=== PATIENT | female | born 1985 | race Caucasian/White ===

== ENCOUNTER → 2019-02-18 16:41 | Outpatient (CLI) | payer SELFPAY ==
[2019-02-18 15:45] VITALS: BMI 44.6
[2019-02-18 17:46] LABS: Absolute Lymphocyte Count 2.86 X10^3/ul (0.83-4.51); Absolute Neutrophil Count 5.7 X10^3/uL (2.0-7.7); Basophil# 0.05 X10^3/uL; Basophil% 0.5 % (0-1); Eosinophil# 0.18 X10^3/uL; Eosinophils% 1.9 % (0-5); Hematocrit 39.1 % (37-47); Hemoglobin 13.1 g/dl (12.0-15.0); Lymphocyte # 2.86 X10^3/ul (4.0); Lymphocyte % 29.9 % (19-41); Mean Corp Hgb Conc 33.5 g/gl (32-36); Mean Corpuscular Hgb 29.4 pg (27.0-32.0); Mean Corpuscular Volume 87.9 fL (81-99); Mean Platelet Vol. 10.9 fl (6.2-12.0); Monocyte# 0.75 X10^3/uL; Monocyte% 7.8 % (0-10); Neutrophil % 59.7 % (47-70); Platelet Count 283 K/mm3 (150-450); RBC Distribution Width CV 13.3 % (11.6-14.6); RBC Distribution Width SD 41.4 fl (35.1-43.9); Red Blood Count 4.45 M/mm3 (4.2-5.4); White Blood Count 9.6 K/mm3 (4.4-11.0)
[2019-02-18 17:57] LABS: POSITIVE COUNT NO; POSITIVE DIFFERENTIAL NO; POSITIVE MORPHOLOGY NO
[2019-02-18 18:16] LABS: Glucose Challenge Gest 1H 50g 92 mg/dL (70-140)
[2019-02-18 19:25] LABS: HIV - WCH Non-Reactive (Nonreactive); Rubella IgG > 500.0 IU/mL
[2019-02-18 21:32] LABS: Chlamydia Trachomatis by PCR Negative (Negative); Neisserai gonorrhoeae by PCR Negative (Negative); Probe Check PASS; Sample Adequacy Control PASS; Specimen Processing Control PASS
[2019-02-20 01:45] LABS: Rapid Plasmin Reagin (RPR) NONREACTIVE (NONREACTIVE)
[2019-02-20 12:23] LABS: HEPATITIS B SURFACE AG Negative (Negative)
[2019-02-23 10:30] LABS: HPV APTIMA, High Risk Negative (Negative)
== END ==
PROVIDERS: Family Provider Family Medicine; PCP Family Medicine; Referring Provider Obstetrics & Gynecology; Visit Provider Obstetrics & Gynecology
DX: Z34.90 Encounter for supervision of normal pregnancy, unspecified, unspecified trimester (principal); Z12.4 Encounter for screening for malignant neoplasm of cervix
CPT/HCPCS: 36415; 82950; 85025; 86592; 86703; 86762; 86850; 86900; 87086; 87088; 87340; 87491; 87591; 87624; 88175; G0145

== ENCOUNTER → 2019-06-26 11:24 | Outpatient (CLI) | payer MEDICAID, SELFPAY ==
[2019-06-26 10:26] VITALS: BMI 44.6
[2019-06-26 11:48] LABS: Absolute Lymphocyte Count 2.59 X10^3/uL (0.83-4.51); Absolute Neutrophil Count 7.8 X10^3/uL (2.0-7.7); Basophil# 0.05 X10^3/uL; Basophil% 0.4 % (0-1); Eosinophil# 0.16 X10^3/uL; Eosinophils% 1.4 % (0-5); Hematocrit 34.9 % (37-47); Hemoglobin 11.4 g/dL (12.0-15.0); Lymphocyte # 2.59 X10^3/ul (4.0); Lymphocyte % 22.5 % (19-41); Mean Corp Hgb Conc 32.7 g/dL (32-36); Mean Corpuscular Hgb 30.1 pg (27.0-32.0); Mean Corpuscular Volume 92.1 fL (81-99); Mean Platelet Vol. 10.3 fl (6.2-12.0); Monocyte# 0.85 X10^3/uL; Monocyte% 7.4 % (0-10); NRBC Flagged by Analyzer 0 % (0-5); Neutrophil # 7.83 X10^3/uL (2.7-7.7); Platelet Count 349 K/mm3 (150-450); RBC Distribution Width CV 13.2 % (11.6-14.6); RBC Distribution Width SD 44.5 fl (35.1-43.9); Red Blood Count 3.79 M/mm3 (4.2-5.4); White Blood Count 11.5 K/mm3 (4.4-11.0)
[2019-06-26 12:40] LABS: Glucose Challenge Gest 1H 50g 87 mg/dL (70-140)
== END ==
LOC: PAVLAB 11:25 → LAB 11:31
PROVIDERS: Family Provider Family Medicine; PCP Family Medicine; Referring Provider Obstetrics & Gynecology; Visit Provider Obstetrics & Gynecology
DX: Z34.92 Encounter for supervision of normal pregnancy, unspecified, second trimester (principal)
CPT/HCPCS: 36415; 82950; 85025

== ENCOUNTER → 2019-07-30 12:26 | Outpatient (CLI) | payer MEDICAID, SELFPAY ==
[2019-07-24 08:59] VITALS: BMI 44.6
--- NOTE | 2019-07-30 12:28 | US_ITS ---
STUDY: SECOND AND THIRD TRIMESTER OBSTETRICAL ULTRASOUND REASON FOR EXAM: Female, 34 years old. growth. LMP: December 15, 2018. TECHNIQUE: Transabdominal TECHNICAL QUALITY: Adequate. PRIOR ULTRASOUND: None. FINDINGS: There is a single intrauterine fetus. The fetus is in a cephalic presentation. There is demonstrated cardiac activity with a heart rate of 153 bpm. There is a normal amniotic fluid volume. The largest amniotic fluid pocket measures 4.7 cm. The amniotic fluid index (HALEY) is 14.6 cm. The placenta is anterior in location and is not low lying. There are Grade 2 placental changes. The cervix measures 4.2 cm in length. The bilateral adnexal regions are normal. BIOMETRY: BPD: 8.2 cm: 32 weeks, 5 days HC: 29.6 cm: 32 weeks, 4 days AC: 28.3 cm: 32 weeks, 3 days FL: 6.3 cm: 32 weeks, 2 days CI: 79% FL/BPD: 77% FL/HC: FL/AC: 22% HC/AC: 1.04 age by current US: 32 weeks, 2 days. RONAK by current US: September 22, 2019. Estimated weight: 1970 grams, +/- 292 grams, 39 %. Age by LMP: 32 weeks, 2 days. RONAK by LMP: September 22, 2019. US/OB Limited With Biometrics IMPRESSION: Single live intrauterine gestation with a mean gestational age of 32 weeks and 2 days. Electronically Signed: Randall Snow, at 10:07 EST , Service support ,
== END ==
PROVIDERS: Family Provider Family Medicine; PCP Family Medicine; Referring Provider Obstetrics & Gynecology; Visit Provider Obstetrics & Gynecology
DX: O09.90 Supervision of high risk pregnancy, unspecified, unspecified trimester (principal); O99.211 Obesity complicating pregnancy, first trimester; Z3A.32 32 weeks gestation of pregnancy
CPT/HCPCS: 76816

== ENCOUNTER 2019-08-06 13:45 | Outpatient (CLI) | payer MEDICAID, SELFPAY ==
[2019-08-06 13:16] VITALS: BMI 44.6
[2019-08-06 14:10] VITALS: BMI 49.5
--- NOTE | 2019-08-06 14:53 | OB.TRI.PN ---
Progress Notes Date of Service: 08/06/19 Progress Note: Patient presents for triage evaluation secondary to contraction FHT: 135 Moderate variability reactive no decelerations category I tracing [place]: irritability contractions Assessment and plan: threatened PTL closed cervix Reactive NST, reassuring maternal and status patient discharged to home to follow-up as scheduled. See problem list details for additional plan information. Multi Select Codes - Urinary/Genital Urinary/Genital CPT Codes: 20024-77 non-stress test Interp
== END 2019-08-06 15:00 | disposition home or self-care (01) ==
LOC: WPOUT 13:56 → WP 13:57
PROVIDERS: Family Provider Family Medicine; PCP Family Medicine; Referring Provider Obstetrics & Gynecology; Visit Provider Obstetrics & Gynecology
DX: O60.00 Preterm labor without delivery, unspecified trimester (principal); Z3A.00 Weeks of gestation of pregnancy not specified
CPT/HCPCS: 59025; 59050; 99218; G0378

== ENCOUNTER → 2019-08-28 08:39 | Outpatient (CLI) | payer MEDICAID, SELFPAY ==
[2019-08-05 09:46] VITALS: BMI 44.6
[2019-08-19 09:07] VITALS: BMI 49.5
--- NOTE | 2019-08-28 08:40 | US_ITS ---
STUDY: SECOND AND THIRD TRIMESTER OBSTETRICAL ULTRASOUND - LIMITED REASON FOR EXAM: Female, 34 years old LMP: 12/16/2018 PRIOR ULTRASOUND: None. TECHNIQUE: Transabdominal TECHNICAL QUALITY: Adequate. FINDINGS: There is a single intrauterine fetus. The fetus is in a cephalic presentation. There is demonstrated cardiac activity with a heart rate of 1:30 bpm. There is a normal amniotic fluid volume. The largest amniotic fluid pocket measures 5.9 cm. The amniotic fluid index (HALEY) is 15.0 cm. The placenta is anterior in location and is not low lying. There are Grade 3 placental changes. The cervix measures 4.2 cm cm in length. BIOMETRY: BPD: 8.7 cm: 35 weeks, 1 days HC: 32.1 cm: 36 weeks, 1 days AC: 33.7 cm: 37 weeks, 4 days FL: 7.0 cm: 35 weeks, 4 days Age by LMP: 36 weeks, 3 days. RONAK by LMP: 09/22/2019. age by current US: 36 weeks, 4 days. RONAK by current US: 09/21/2019. Estimated weight: 3011 grams, +/- 446 grams, 57 percentile. Gender: US/OB Limited With Biometrics IMPRESSION: Living intrauterine of 36 weeks 4 days as described above. Electronically Signed: Alessio Marie MD at 12:51 EST Tel , Service support ,
== END ==
PROVIDERS: Family Provider Family Medicine; PCP Family Medicine; Referring Provider Nurse Practitioner Women's Health; Visit Provider Nurse Practitioner Women's Health
DX: O99.210 Obesity complicating pregnancy, unspecified trimester (principal); Z3A.36 36 weeks gestation of pregnancy
CPT/HCPCS: 76816; 87081

== ENCOUNTER → 2019-09-10 12:59 | Outpatient (CLI) | payer MEDICAID, SELFPAY ==
[2019-09-10 11:11] VITALS: BMI 49.5
[2019-09-10 18:40] LABS: Protein, Urine (Random) 28.8 mg/dL (<11.9); Protein:Creat Ratio 144 mg/g CRE (0-200)
== END ==
PROVIDERS: Family Provider Family Medicine; PCP Family Medicine; Referring Provider Obstetrics & Gynecology; Visit Provider Obstetrics & Gynecology
DX: O09.90 Supervision of high risk pregnancy, unspecified, unspecified trimester (principal); Z3A.00 Weeks of gestation of pregnancy not specified
CPT/HCPCS: 82570; 84156

== ENCOUNTER → 2019-09-24 14:23 | Outpatient (CLI) | payer MEDICAID, SELFPAY ==
[2019-09-18 10:29] VITALS: BMI 49.5
--- NOTE | 2019-09-24 14:24 | US_ITS ---
STUDY: SECOND AND THIRD TRIMESTER OBSTETRICAL ULTRASOUND - LIMITED REASON FOR EXAM: Female, 34 years old growth. LMP: December 15, 2018 PRIOR ULTRASOUND: August 28, 2019 and July 30, 2019. TECHNIQUE: Transabdominal TECHNICAL QUALITY: Adequate. FINDINGS: There is a single intrauterine fetus. The fetus is in a cephalic presentation. There is demonstrated cardiac activity with a heart rate of 144 bpm. There is decreased amniotic fluid volume consistent with oligohydramnios. The largest amniotic fluid pocket measures 3.33 cm. The amniotic fluid index (HALEY) is 7.98 cm. The placenta is anterior in location and is not low lying. There are Grade 3 placental changes. The cervix measures 4.04 cm cm in length. BIOMETRY: BPD: 9.23 cm: 37 weeks, 4 days HC: 33.03 cm: 37 weeks, 5 days AC: 36.44 cm: 40 weeks, 3 days FL: 7.28 cm: 37 weeks, 2 days Age by LMP: 40 weeks, 2 days. RONAK by LMP: September 22, 2019. age by prior US: 40 weeks, 2 days. RONAK by prior US: September 22, 2019. age by current US: 38 weeks, 2 days. RONAK by current US: October 06, 2019. Estimated weight: 3664 grams, +/- 535 grams. US/OB Limited With Biometrics IMPRESSION: 1. Live single intrauterine at 38 weeks, 2 days. RONAK is October 06, 2019. This is 2 weeks behind expected gestational age by initial ultrasound. 2. EFW of 3664 g. 3. Oligohydramnios. The HALEY is 7.98 cm. 4. Anterior grade 3 placenta. 5. Vertex presentation. Electronically Signed: Rufus Palma DO at 19:15 EST Tel [phone], Service support ,
== END ==
PROVIDERS: Family Provider Family Medicine; PCP Family Medicine; Referring Provider Nurse Practitioner Women's Health; Visit Provider Nurse Practitioner Women's Health
DX: O99.211 Obesity complicating pregnancy, first trimester (principal); Z3A.00 Weeks of gestation of pregnancy not specified
CPT/HCPCS: 76816

== ENCOUNTER → 2019-09-28 14:23 | Outpatient (CLI) | payer MEDICAID, SELFPAY ==
[2019-09-24 15:43] VITALS: BMI 49.5
--- NOTE | 2019-09-28 14:33 | US_ITS ---
STUDY: OBSTETRICAL ULTRASOUND - BIOPHYSICAL PROFILE REASON FOR EXAM: Female, 34 years old HALEY CHECK AND BIOPHYSICAL PROFILE LMP: December 16, 2018 PRIOR ULTRASOUND: Comparison is made with prior sonogram dated March 24, 2020. TECHNIQUE: Transabdominal TECHNICAL QUALITY: Adequate. FINDINGS: There is a single intrauterine fetus. The fetus is in a cephalic presentation. There is demonstrated cardiac activity with a heart rate of 125 bpm. There is decreased amniotic fluid consistent with oligohydramnios. The largest amniotic fluid pocket measures 2.73 cm. The amniotic fluid index (HALEY) is 4.83 cm. The placenta is anterior in location and is not low lying. There are Grade 3 placental changes. Age by LMP: 40 weeks, 6 days. RONAK by LMP: September 22, 2019. BIOPHYSICAL PROFILE: Breathing Movements (FBM): 0 Gross Body Movements (GBM): 0 Tone (FT): 0 Amniotic Fluid Volume (AFV): 0 TOTAL SCORE: 0 / 8 US/Biophysical Profile IMPRESSION: biophysical profile of 0/8. Referring physician was notified. The patient was taken to the labor and delivery room. Electronically Signed: Randall Snow, at 15:43 EST , Service support ,
== END ==
PROVIDERS: Family Provider Family Medicine; PCP Family Medicine; Referring Provider Nurse Practitioner Women's Health; Visit Provider Nurse Practitioner Women's Health
DX: O09.90 Supervision of high risk pregnancy, unspecified, unspecified trimester (principal); O99.210 Obesity complicating pregnancy, unspecified trimester; Z3A.40 40 weeks gestation of pregnancy
CPT/HCPCS: 76818

== ENCOUNTER 2019-09-28 15:25 | Inpatient (IN) | payer MEDICAID, SELFPAY ==
[2019-09-24 15:43] VITALS: BMI 49.5
[2019-09-28] VITALS (15 sets, daily range): BP systolic 103–131; BP diastolic 55–95; PULSE 88–112; RESP 16–18; TEMP 35.9–36.8; O2SAT 96–100; BMI 51.5
[2019-09-28] MEDS: Lactated Ringers 1,000 ML 999 ML IV (15:35)
[2019-09-28] MEDS: Sodium Citrate/Citric Acid 30 ML UDC PO (15:44)
[2019-09-28 15:48] LABS: Absolute Neutrophil Count 7.2 X10^3/uL (2.0-7.7); Basophil# 0.04 X10^3/uL; Basophil% 0.3 % (0-1); Eosinophil# 0.18 X10^3/uL; Eosinophils% 1.5 % (0-5); Hematocrit 37.2 % (37-47); Hemoglobin 12.3 g/dL (12.0-15.0); Lymphocyte % 28.3 % (19-41); Mean Corp Hgb Conc 33.1 g/dL (32-36); Mean Corpuscular Hgb 29.9 pg (27.0-32.0); Mean Corpuscular Volume 90.3 fL (81-99); Monocyte# 0.88 X10^3/uL; Monocyte% 7.5 % (0-10); NRBC Flagged by Analyzer 0 % (0-5); Neutrophil # 7.22 X10^3/uL (2.7-7.7); Platelet Count 417 K/mm3 (150-450); RBC Distribution Width CV 14.6 % (11.6-14.6); RBC Distribution Width SD 48.1 fl (35.1-43.9); Red Blood Count 4.12 M/mm3 (4.2-5.4); White Blood Count 11.7 K/mm3 (4.4-11.0)
--- NOTE | 2019-09-28 15:48 | PCM.HP.OB ---
- Problem List (1) Abnormal ultrasound Status: Acute (2) Oligohydramnios Status: Acute (3) Tetanus, diphtheria, and acellular pertussis (Tdap) vaccination declined Status: Acute Comment: declined on 06/26/19 (4) Influenza vaccination declined Status: Acute Comment: declined on 06/26/19 (5) Obesity affecting Status: Acute Qualifiers: Comment: 1 tm glucola nl, healthy weight gain discussed, weekly nsts after 32 weeks and growth us q 4 weeks (6) Status: Acute Qualifiers: Comment: genetic, ntd, and carrier screening declined, US limited FU heart views visualized (7) Supervision of high risk , antepartum Status: Acute Comment: PRR RONAK 10/02/19 girl name surprise Girma (8) Tobacco use complicating Status: Acute Qualifiers: Comment: encouraged cessation History Date of Admission: 09/28/19 Final RONAK: 09/22/19 Gestational age: 40 Weeks and 6 Days History of this : This is a 34 year-old, at 40w6d weeks gestational age presents for follow-up testing. Patient was being followed with weekly testing due to morbid obesity. Patient cervical exam was unfavorable on Saturday and she had a reactive NST normal growth and fluid level of 7.8 cm on Saturday and therefore a repeat HALEY and BPP was ordered today. HALEY was 4 cm and BPP was 0 out of 8 today on exam and therefore the decision was made for urgent primary section for nonreassuring testing. heart rate showed minimal to moderate variability nonreactive upon initial evaluation. No decelerations present. Patient noted normal movement over the weekend and some decreased movement this morning. Allergies No Known Allergies Allergy (Verified 09/28/19 15:35) Home Medications: Home Medications vitamin#30 30 mg iron-10 mg iron-folic acid 1 mg-omg3 capsule 1 cap PO DAILY cap 02/18/19 Smoking Status: Light Smoker (<10/day) Alcohol: None Number of Fetus(es): 1 NST - FHR Rate Baby A Baseline: 140 Variability:: Minimal, Moderate Accelerations:: None Decelerations:: None NST Reactive:: Non-Reactive FHR Category:: Category II Uterine Activity:: Irregular History Past Pregnancies: Past Pregnancies Delivery Date Name GA/ Weeks Outcome Route Wt Sex Labor Length Anesthesia Delivery Location Provider FOB Labs: Mom's Problem List Problem Status Onset Code Abnormal ultrasound Acute O28.3 Oligohydramnios Acute O41.00X0 Mom's Labs & Results 09/28/19 09/28/19 15:35 15:35 WBC 11.7 H RBC 4.12 L Hgb 12.3 Hct 37.2 MCV 90.3 MCH 29.9 MCHC 33.1 RDW Std Deviation 48.1 H RDW Coeff of Onofre 14.6 Plt Count 417 MPV 10.0 Immature Gran % (Auto) 0.400 Neut % (Auto) 62.0 Lymph % (Auto) 28.3 [place] % (Auto) 7.5 Eos % (Auto) 1.5 Baso % (Auto) 0.3 Absolute Neuts (auto) 7.2 Absolute Lymphs (auto) 3.30 Nucleated RBC % 0 Blood Type A POSITIVE Antibody Screen NEGATIVE Social History Smoking Status Light Smoker (<10/day) Expected Infant Delivery Method: DALILA Section Review of Systems Constitutional: Denies: Fever, Malaise Eyes: Denies: Blurred vision, Vision Change HEENT: Denies: Head Aches, Visual Changes Cardiovascular: Denies: Chest Pain, Palpitations Respiratory: Denies: Cough, Shortness of Breath, Wheezing Gastrointestinal: Denies: Abdominal Pain, Diarrhea, Nausea, Vomiting Genitourinary: Denies: Dysuria, Hematuria Musculoskeletal: Denies: Joint Pain, Muscle pain Skin: Denies: Lesions, Rash Neurological: Denies: Blurred vision, Focal weakness, Headaches Psychiatric: Denies: Anxiety, Depression Endocrine: Denies: Heat/ Cold Intolerance Hematologic/ Lymphatic: Denies: Easy Bruising, Easy Bleeding Physical Exam General: Alert, Cooperative, No apparent distress HEENT: Atraumatic, Normocephalic. Negative for: Thyromegaly, Lymphadenopathy Cardiovascular: Regular rate Lungs: Normal air movement Abdomen: Soft, Non Tender, Gravid Neurological: Deep Tendon Reflexes 2+/4 and Symmetrical, Neuro grossly intact. Negative for: Clonus HUMAN RESOURCE MANAGER: Normal external genitalia. Negative for: Vulvar lesions Estimated gestational size: Appropriate for gestational size Presentation: Cephalic Cervix Dilation (cm): 0 Station: -3 Effacement (%): 0 Assessment/Plan All Active Problems (Last Reviewed 09/24/19 @ 15:43 by Loni Mcfarlane) Abnormal ultrasound (Acute) Oligohydramnios (Acute) Tetanus, diphtheria, and acellular pertussis (Tdap) vaccination declined (Acute) Influenza vaccination declined (Acute) Obesity affecting (Acute) (Acute) Supervision of high risk , antepartum (Acute) Tobacco use complicating (Acute) This is a 34 year-old, , at 40w6d weeks gestational age with oligohydramnios and 0 out of 8 BPP and remote from delivery. Decision for emergent primary .patient counseled and agreeable.
--- NOTE | 2019-09-28 16:08 | PLAC_PTH ---
PATIENT: EDGAR ESTRADA LOC: [facility] U#:[id number] AGE/SX: 34/F ROOM: WP008 RE09/28/[address]: Dr. Katerina Gil MD : 1985 BED: 1 DIS: 10/01/2019 SPEC #: [id number] RECD: 09/28/19 20:51 STATUS: OSKAR AKASH #: [id number] ERIK: 09/28/19 16:[address]: Katerina Gil DEPT: SURGICAL PATHOLOGY RECD BY: Abilio Lyn ENTERED: 09/29/19 13:08 SP TYPE: PLACENTA OTHR DR: Dr. Zack Cosme, DO Tissues: Placenta, NOS Procedures: Surgery Specimen Level V HEADER OPERATION: Primary section PRE-OP DIAGNOSIS: Labor & delivery TISSUE SUBMITTED: Placenta MICROSCOPIC DIAGNOSIS Placenta: Placental disc - third trimester placenta (623 gm). - Focal increased calcification. Membranes - no pathologic diagnosis. Umbilical cord - three blood vessels and no pathologic diagnosis. SJ:ace 10/01/19 MICROSCOPIC DESCRIPTION Slides are reviewed. GROSS DESCRIPTION SPECIMEN: PLACENTA / CLINICAL INFORMATION: A. Weight: 3.525 kg B. Gestational Age: 40 weeks C. Sex: Female PLACENTAL WEIGHT (POST FIXATION): 623 gm PLACENTAL DIMENSIONS: 18.5 x 16 x 4 cm PLACENTAL SHAPE: Usual ovoid PLACENTAL WEIGHT FOR GESTATIONAL AGE: Over 99th percentile MEMBRANES - Present A. Insertion: Marginal B. Site of rupture from edge: At edge of placental disc C. Color of membrane: Edward-watson D. Abnormalities: None UMBILICAL CORD - Present A. Color: Edward-watson B. Insertion: Eccentric C. Length: 21 cm D. Diameter: 1.4 cm E. Number of vessels: Three F. Abnormalities: None PLACENTAL DISC - Present A. Color of surface: Edward-watson B. surface abnormalities: None C. Maternal cotyledons: Intact with minimal tears D. Attached retro placental clot: No clot E. Cut surface: Dark red and spongy F. Lesions: None G. Separate clot: 2 x 7 x 1 cm SECTIONS SUBMITTED: 1. Umbilical cord ( end inked) 2. Membrane roll 3. Placental disc, and maternal surfaces 4. Placental disc, and maternal surfaces 5. Placental disc, and maternal surfaces AM:ace 09/30/19 TC:5 CPT: 39407
[2019-09-28] MEDS: Ketorolac 30 MG/ML Syringe IV ×2 (16:28→22:22)
--- NOTE | 2019-09-28 16:50 | OP.PCM_ITS ---
Problem List (1) Abnormal ultrasound Status: Acute (2) Oligohydramnios Status: Acute (3) Tetanus, diphtheria, and acellular pertussis (Tdap) vaccination declined Status: Acute Comment: declined on 06/26/19 (4) Influenza vaccination declined Status: Acute Comment: declined on 06/26/19 (5) Obesity affecting Status: Acute Qualifiers: Comment: 1 tm glucola nl, healthy weight gain discussed, weekly nsts after 32 weeks and growth us q 4 weeks (6) Status: Acute Qualifiers: Comment: genetic, ntd, and carrier screening declined, US limited FU heart views visualized (7) Supervision of high risk , antepartum Status: Acute Comment: PRR RONAK 10/02/19 girl name surprise Girma (8) Tobacco use complicating Status: Acute Qualifiers: Comment: encouraged cessation Delivery Classification: DALILA Final RONAK: 09/22/19 Gestational age: 40 Weeks and 6 Days Type of Anesthesia:: Spinal Special Medications: none Implants Used: none Date of Procedure: 09/28/19 Pre-Operative Diagnosis: 0/8 BPP abnormal testing oligohydramnios Post-Operative Diagnosis: same Indications for : Distress Description of Procedure: The patient is a 34-year-old G1, P0 at 40 weeks 6 days who presents for emergent secondary to 0 out of 8 BPP and oligohydramnios. Patient had been getting testing due to morbid obesity and had a normal growth HALEY and reactive NST on Saturday and had a repeat BPP and HALEY today and testing was found to be abnormal and patient was remote from delivery and therefore the decision for an immediate primary was made. CBC result was back in normal immediately prior to and therefore spinal anesthesia was placed without difficulty. Ashby catheter was placed. The patient was placed in the dorsal supine position with leftward tilt. Patient was prepped and draped in the normal sterile fashion. Pfannenstiel skin incision was made with the scalpel and carried through to the underlying layer of fascia with the scalpel. Fascia was nicked in the midline and the incision extended laterally. The rectus bellies were dissected off superiorly and inferiorly with out complication both sharply and bluntly. The peritoneum was entered digitally. The incision was stretched and a low transverse uterine incision was made with the scalpel. The 's head was delivered atraumatically followed by the anterior and posterior shoulders without complication the rest of the delivered. The cord was clamped and cut and the was handed off to awaiting nurse. The placenta was delivered spontaneously immediately following and was noted to be intact and have a three-vessel cord. The uterus was exteriorized cleared of all clots and debris, and the incision was closed in a double layer closure using #1 Monocryl. The ovaries and fallopian tubes were noted to be within normal limits. The uterus was returned to the maternal abdomen and gutters were cleared of all clots and debris. The peritoneum was closed with 3-0 Monocryl in a running fashion. Gloves were changed prior to fascial closure. Fascia was closed with 0 PDS in a running fashion. Subcutaneous tissue was copiously irrigated and the skin was closed with 3-0 Monocryl in a subcuticular fashion. Mepilex dressing was applied without complication. Patient was taken to recovery in stable condition. It was discussed with the patient that based on the clinical information obtained during this encounter, combined with her history, at this time I would recommend vaginal or cesareans for future deliveries if further pregnancies are desired. Amniotic Membrane Rupture Type: Artificial Amniotic Fluid Description: Clear Placenta Disposition: [facility] Cord Entanglement: None Esitmated Blood Loss (ml): 500 Infant Gender: Female (1 minute): 9 (5 minute): 9 Delayed cord clamping: Yes Antibiotic Given: Ancef 3 grams IV x1 Pt instructed on risks of surgery: Bleeding, Anesthesia Risks, Infection, Injury to surrounding structure(s) including bowel and bladder Complications: None - Admit VTE Documentation VTE Present on Admission: No Multi Select Codes - Urinary/Genital Urinary/Genital CPT Codes: 57495 Delivery [facility]
[2019-09-28] MEDS: Oxytocin 30 units/NS 500 ml 30 UNITS/500 ML IV.SOLN 167 UNITS IV (17:10)
--- NOTE | 2019-09-28 20:44 | NURSING ---
Indwelling urinary catheter present. WNL
[2019-09-28 20:48] LABS: Pathology Specimen OB SEE PATHOLOGY REPORT
[2019-09-28] MEDS: Lactated Ringers 1,000 ML 100 ML IV (21:37)
[2019-09-29] VITALS (14 sets, daily range): BP systolic 87–126; BP diastolic 45–64; PULSE 90–104; RESP 14–18; TEMP 36.4–36.9; O2SAT 96–99
--- NOTE | 2019-09-29 01:59 | NURSING ---
Patient denies lightheadedness or dizziness. Will continue to monitor.
[2019-09-29] MEDS: Ketorolac 30 MG/ML Syringe IV ×3 (04:27→18:29)
[2019-09-29] MEDS: 0.9% Saline Lock 10 ML Syringe IV ×4 (04:28→18:29)
[2019-09-29] MEDS: Enoxaparin 40 MG/0.4 ML Syringe SC ×2 (05:10→18:36)
[2019-09-29 05:28] LABS: Hematocrit 31.3 % (37-47); Hemoglobin 10.1 g/dL (12.0-15.0); Mean Corp Hgb Conc 32.3 g/dL (32-36); Mean Corpuscular Volume 89.9 fL (81-99); Mean Platelet Vol. 10.1 fl (6.2-12.0); Platelet Count 326 K/mm3 (150-450); RBC Distribution Width CV 14.8 % (11.6-14.6); RBC Distribution Width SD 48.7 fl (35.1-43.9); Red Blood Count 3.48 M/mm3 (4.2-5.4); White Blood Count 12.7 K/mm3 (4.4-11.0)
--- NOTE | 2019-09-29 09:10 | PCM.PN.OB ---
Patient Problems: Active and Suspected Problems (Last Reviewed 09/24/19 @ 15:43 by Loni Mcfarlane) Abnormal ultrasound (Acute) Oligohydramnios (Acute) Subjective: doing well no complaints pain controlled no CP SOB N V ambulating well tolerating po lochia moderate, going well - Physical Exam Vitals/I&O's: Vital Signs Temp Pulse Resp BP Pulse Ox 98.4 F 104 H 16 94/45 L 98 09/29/19 03:40 09/29/19 04:13 09/29/19 06:13 09/29/19 03:40 09/29/19 06:13 Oxygen Delivery Method Room Air Weight: 229 lb 15.074 oz Body Mass Index (BMI) 51.5 Intake and Output for Last 24 Hours 09/27/19 09/28/19 09/29/19 23:59 23:59 23:59 Intake Total 2314.8 / 2314.8 1073.08 / 1073.08 Output Total 525 / 525 2100 / 2100 Balance 1789.8 / 1789.8 -1026.92 / -1026.92 General: Alert, Oriented x3 Laboratory Results 09/28/19 15:35: WBC 11.7 H, RBC 4.12 L, Hgb 12.3, Hct 37.2, MCV 90.3, MCH 29.9, MCHC 33.1, RDW Std Deviation 48.1 H, RDW Coeff of Onofre 14.6, Plt Count 417, MPV 10.0, Immature Gran % (Auto) 0.400, Neut % (Auto) 62.0, Lymph % (Auto) 28.3, [place] % (Auto) 7.5, Eos % (Auto) 1.5, Baso % (Auto) 0.3, Absolute Neuts (auto) 7.2, Absolute Lymphs (auto) 3.30, Nucleated RBC % 0 09/28/19 15:35: Blood Type A POSITIVE, Antibody Screen NEGATIVE 09/29/19 05:15: WBC 12.7 H, RBC 3.48 L, Hgb 10.1 L, Hct 31.3 L, MCV 89.9, MCH 29.0, MCHC 32.3, RDW Std Deviation 48.7 H, RDW Coeff of Onofre 14.8 H, Plt Count 326, MPV 10.1 Current Medications Acetaminophen (Tylenol) 1,000 mg PO Q8H PRN PRN Reason: Pain Score 1-3/10 Bisacodyl (Dulcolax) 10 mg RECTAL UD PRN PRN Reason: If no BM Enoxaparin Sodium (Lovenox) 40 mg SC BID [facility] Last Admin: 09/29/19 05:10 Dose: 40 mg Documented by: Hydrocortisone (Hytone) 1 applic TOPICAL TID PRN PRN; Protocol PRN Reason: Discomfort Lactated Ringer's () 1,000 mls @ 100 mls/hr IV .Q10H [facility] Last Infusion: 09/29/19 07:54 Dose: Infused Documented by: Naloxone HCl 4 mg/ Dextrose 504 mls @ 0 mls/hr IV .Q0M PRN; Protocol PRN Reason: Respiratory depression Naloxone HCl 4 mg/ Dextrose 504 mls @ 0 mls/hr IV .Q0M PRN; Protocol PRN Reason: To maintain Resp. rate >10 Ketorolac Tromethamine (Toradol) 30 mg IV Q6H [facility] Stop: 09/30/19 12:31 Last Admin: 09/29/19 04:27 Dose: 30 mg Documented by: Methylergonovine Maleate (Methergine) 0.2 mg IM X1 PRN PRN Reason: Uterine Atony Naloxone HCl (Narcan) 0.02 mg IV Q1M PRN PRN Reason: RR <10 and pt unresponsive Naproxen (Naprosyn) 250 - 500 mg PO Q8H PRN PRN PRN Reason: Pain Score 1-3/10 Ondansetron HCl (Zofran) 4 mg IV Q4H PRN PRN PRN Reason: Nausea Oxycodone HCl (Oxyir) 5 - 10 mg PO Q4H PRN PRN PRN Reason: Pain Score 4-10/10 Prochlorperazine Edisylate (Compazine Iv) 10 mg IV Q6H PRN PRN PRN Reason: NAUSEA Senna/Docusate Sodium (Senokot-S, Koki-Colace) 0 tablet PO DAILY PRN PRN Reason: Constipation Simethicone (Mylicon) 80 mg PO PCHS PRN PRN Reason: Indigestion/stomach pain Sodium Chloride () 5 - 15 ml IV UD PRN PRN Reason: SALINE FLUSH Last Admin: 09/29/19 07:54 Dose: 10 ml Documented by: Medical Necessity - Tobacco Use Smoking Status: Current every day smoker Assessment/Plan All Active Problems (Last Reviewed 09/24/19 @ 15:43 by Loni Mcfarlane) Abnormal ultrasound (Acute) Oligohydramnios (Acute) Tetanus, diphtheria, and acellular pertussis (Tdap) vaccination declined (Acute) Influenza vaccination declined (Acute) Obesity affecting (Acute) (Acute) Supervision of high risk , antepartum (Acute) Tobacco use complicating (Acute) s/p LTCS PPD # 1 1. routine post care 2. breast feeding- support given 3. rh positive 4. rubella immune
[2019-09-29] MEDS: Senna/Docusate Sodium 1 Tablet PO (12:25)
--- NOTE | 2019-09-29 13:45 | CASEMGMT ---
Social Work Labor and Delivery Consult received for maternal history of marijuana use in . Medical records reviewed. Presented to patient/mother of baby (MOB) room. Also in room was father of baby (FOB) and a female visitor who was holding the baby. Introduced to self. Offered to come back later today or tomorrow morning due to having visitors (due to nature of conversation needing to be private). MOB reports will be having more visitors later today so tomorrow morning would be preferred. MOB also reports may be in the hospital another 2 days yet. Plan: See MOB on 09.30.2018 as time allows for assessment. -PEBBLES Suresh, CUSTOMER EXPERIENCE ASSOCIATE
--- NOTE | 2019-09-29 15:28 | NURSING ---
Mother has been doing well holding infant during day, bonding with . Upon entering room to give her Toradol and get pt's vitals, was crying in FOB's arms while mother was eating lunch. Pt reports she is getting ready to feed infant as she thinks it's time. VS obtained, and then pt. decided she needed to use restroom. VS obtained on , RR noted to be 84, rooting. Mother back to bed for feeding. Explained to Carina that the baby is the boss now, of when she gets to eat, sleep - that baby calls the shots. Carina stated that's what people have been telling me. Carina assisted to get latched - very aware of positioning, doing well with that, attempting to get on on her own. Does well expressing colostrum to get infant on. difficult to latch for feed (this at 1250), explained to mother that infant's get to a point when they are so hungry that they become difficult to latch. Carina verbalized understanding, but I feel may need some reinforcement on this. Asked if they had changed any diapers this am, and Carina states I didn't even think about that. This reported to SW, as well as pt. doing well at attempting to parada with infant and with with some assist. Mother also doing well getting up and moving around in room - pt. reports she is eager to be able to go home.
--- NOTE | 2019-09-29 21:21 | NURSING ---
this RN providing continuous emotional support to mother. mother intermittently tearful regarding feelings of being overwhelmed with infant crying and feeding. pt reassured with education and support. she is aware to call RN for any needs and continued breast feeding help. finance consultant updated as well on care provided.
[2019-09-29] MEDS: oxyCODONE 5 MG Tablet PO (21:47)
[2019-09-29] MEDS: Acetaminophen 500 MG Tablet 1000 MG PO (23:21)
--- NOTE | 2019-09-29 23:45 | NURSING ---
nursery RN christina contacted this RN at 2314 stating that pt was writhing in pain while breast feeding. christina suggesting to give pt medication for breakthrough pain. this RN spoke with pt on pain control options and she wanted to take tylenol 1000 mg. this was administered at 2321. patient rating pain 10/10 while sitting in bed. pt aware pain rating that high is compared to surgery without anesthesia. kpad provided to help with incisional pain. pt aware not to be holding infant while applying heating pad. this RN offered to call dr way with anesthesia to perform pain assessment and pt declined. this RN also offered to bring toradol in earlier than scheduled time at 0030. pt stopped being tearful during this discussion and states she will wait until 0030 for dose. she is to call nurse if needs anything before that time.
--- NOTE | 2019-09-30 00:10 | NURSING ---
this RN at bedside to assess pain at this time prior to toradol dose. pt stating pain is now 0/10 and was resting with eyes closed when RN first walked in. will administer toradol at this time and continue to monitor. charge coordinator kelsi aware of pt pain level reported.
[2019-09-30] MEDS: Ketorolac 30 MG/ML Syringe IV ×3 (00:12→12:27)
[2019-09-30] MEDS: 0.9% Saline Lock 10 ML Syringe IV ×3 (00:12→12:27)
[2019-09-30 02:32] VITALS: BP 99/59; PULSE 86; RESP 14; TEMP 36.9
[2019-09-30] MEDS: Enoxaparin 40 MG/0.4 ML Syringe SC ×2 (06:35→18:15)
--- NOTE | 2019-09-30 07:48 | PN.OBGYN_ITS ---
Patient Problems: Active and Suspected Problems (Last Reviewed 09/24/19 @ 15:43 by Loni Mcfarlane) Abnormal ultrasound (Acute) Oligohydramnios (Acute) Subjective: doing well no complaints pain controlled no CP SOB N V ambulating well tolerating po lochia moderate, going well - Physical Exam Vitals/I&O's: Vital Signs Temp Pulse Resp BP Pulse Ox 98.5 F 86 14 99/59 L 97 09/30/19 02:32 09/30/19 02:32 09/30/19 02:32 09/30/19 02:32 09/29/19 16:30 Oxygen Delivery Method Room Air Weight: 229 lb 15.074 oz Body Mass Index (BMI) 51.5 Intake and Output for Last 24 Hours 09/28/19 09/29/19 09/30/19 23:59 23:59 23:59 Intake Total 2314.8 / 2314.8 1073.08 / 1073.08 Output Total 525 / 525 2100 / 2100 Balance 1789.8 / 1789.8 -1026.92 / -1026.92 General: Alert, Oriented x3 Current Medications Acetaminophen (Tylenol) 1,000 mg PO Q8H PRN PRN Reason: Pain Score 1-3/10 Last Admin: 09/29/19 23:21 Dose: 1,000 mg Documented by: Bisacodyl (Dulcolax) 10 mg RECTAL UD PRN PRN Reason: If no BM Enoxaparin Sodium (Lovenox) 40 mg SC BID [facility] Last Admin: 09/30/19 06:35 Dose: 40 mg Documented by: Hydrocortisone (Hytone) 1 applic TOPICAL TID PRN PRN; Protocol PRN Reason: Discomfort Naloxone HCl 4 mg/ Dextrose 504 mls @ 0 mls/hr IV .Q0M PRN; Protocol PRN Reason: Respiratory depression Naloxone HCl 4 mg/ Dextrose 504 mls @ 0 mls/hr IV .Q0M PRN; Protocol PRN Reason: To maintain Resp. rate >10 Ketorolac Tromethamine (Toradol) 30 mg IV Q6H [facility] Stop: 09/30/19 12:31 Last Admin: 09/30/19 06:31 Dose: 30 mg Documented by: Methylergonovine Maleate (Methergine) 0.2 mg IM X1 PRN PRN Reason: Uterine Atony Naloxone HCl (Narcan) 0.02 mg IV Q1M PRN PRN Reason: RR <10 and pt unresponsive Naproxen (Naprosyn) 250 - 500 mg PO Q8H PRN PRN PRN Reason: Pain Score 1-3/10 Ondansetron HCl (Zofran) 4 mg IV Q4H PRN PRN PRN Reason: Nausea Oxycodone HCl (Oxyir) 5 - 10 mg PO Q4H PRN PRN PRN Reason: Pain Score 4-10/10 Last Admin: 09/29/19 21:47 Dose: 10 mg Documented by: Prochlorperazine Edisylate (Compazine Iv) 10 mg IV Q6H PRN PRN PRN Reason: NAUSEA Senna/Docusate Sodium (Senokot-S, Koki-Colace) 0 tablet PO DAILY PRN PRN Reason: Constipation Last Admin: 09/29/19 12:25 Dose: 2 tablet Documented by: Simethicone (Mylicon) 80 mg PO PCHS PRN PRN Reason: Indigestion/stomach pain Sodium Chloride () 5 - 15 ml IV UD PRN PRN Reason: SALINE FLUSH Last Admin: 09/30/19 06:31 Dose: 10 ml Documented by: Medical Necessity - Tobacco Use Smoking Status: Current every day smoker Assessment/Plan All Active Problems (Last Reviewed 09/24/19 @ 15:43 by Loni Mcfarlane) Abnormal ultrasound (Acute) Oligohydramnios (Acute) Tetanus, diphtheria, and acellular pertussis (Tdap) vaccination declined (Acute) Influenza vaccination declined (Acute) Obesity affecting (Acute) (Acute) Supervision of high risk , antepartum (Acute) Tobacco use complicating (Acute) s/p LTCS PPD # 2 1. routine post care 2. breast feeding- support given 3. rh positive 4. rubella immune
[2019-09-30 08:15] VITALS: BP 133/62; PULSE 88; RESP 20; TEMP 36.7
--- NOTE | 2019-09-30 12:40 | NURSING ---
IV removed from pt right hand at this time as IV medication regimen was completed. Pt tolerated well. Rated pain 0/10 with IV removal.
[2019-09-30 14:00] VITALS: BP 111/53; PULSE 80; RESP 18; TEMP 36.8
[2019-09-30] MEDS: Naproxen 250 MG Tablet PO (18:28)
[2019-09-30 20:00] VITALS: BP 103/69; PULSE 98; RESP 16; TEMP 36.6
[2019-09-30] MEDS: Acetaminophen 500 MG Tablet 1000 MG PO (23:07)
[2019-10-01 02:00] VITALS: BP 106/66; PULSE 93; RESP 16; TEMP 36.7
[2019-10-01] MEDS: Naproxen 250 MG Tablet PO ×2 (02:29→11:07)
[2019-10-01] MEDS: Enoxaparin 40 MG/0.4 ML Syringe SC (05:32)
--- NOTE | 2019-10-01 07:42 | PCM.PN.OB ---
Subjective: Doing well, no complaints.Pain controlled. Denies CP, SOB, N,V. Ambulating well, tolerating po. Lochia moderate, going well. - Physical Exam Vitals/I&O's: Vital Signs Temp Pulse Resp BP Pulse Ox 98.1 F 93 16 106/66 97 10/01/19 02:00 10/01/19 02:00 10/01/19 02:00 10/01/19 02:00 09/29/19 16:30 Oxygen Delivery Method Room Air Weight: 229 lb 15.074 oz Body Mass Index (BMI) 51.5 Intake and Output for Last 24 Hours 09/29/19 09/30/19 10/01/19 23:59 23:59 23:59 Intake Total 1073.08 / 1073.08 Output Total 2100 / 2100 Balance -1026.92 / -1026.92 General: Alert, Oriented x3 Abdomen: Soft, Non-Distended, - - FF below U. Dressing dry and intact. Binder on. tolerated exam well Current Medications Acetaminophen (Tylenol) 1,000 mg PO Q8H PRN PRN Reason: Pain Score 1-3/10 Last Admin: 09/30/19 23:07 Dose: 1,000 mg Documented by: Bisacodyl (Dulcolax) 10 mg RECTAL UD PRN PRN Reason: If no BM Enoxaparin Sodium (Lovenox) 40 mg SC BID@0600,1800 [facility] Last Admin: 10/01/19 05:32 Dose: 40 mg Documented by: Hydrocortisone (Hytone) 1 applic TOPICAL TID PRN PRN; Protocol PRN Reason: Discomfort Naloxone HCl 4 mg/ Dextrose 504 mls @ 0 mls/hr IV .Q0M PRN; Protocol PRN Reason: Respiratory depression Naloxone HCl 4 mg/ Dextrose 504 mls @ 0 mls/hr IV .Q0M PRN; Protocol PRN Reason: To maintain Resp. rate >10 Methylergonovine Maleate (Methergine) 0.2 mg IM X1 PRN PRN Reason: Uterine Atony Naloxone HCl (Narcan) 0.02 mg IV Q1M PRN PRN Reason: RR <10 and pt unresponsive Naproxen (Naprosyn) 250 - 500 mg PO Q8H PRN PRN PRN Reason: Pain Score 1-3/10 Last Admin: 10/01/19 02:29 Dose: 500 mg Documented by: Ondansetron HCl (Zofran) 4 mg IV Q4H PRN PRN PRN Reason: Nausea Oxycodone HCl (Oxyir) 5 - 10 mg PO Q4H PRN PRN PRN Reason: Pain Score 4-10/10 Last Admin: 09/29/19 21:47 Dose: 10 mg Documented by: Prochlorperazine Edisylate (Compazine Iv) 10 mg IV Q6H PRN PRN PRN Reason: NAUSEA Senna/Docusate Sodium (Senokot-S, Koki-Colace) 0 tablet PO DAILY PRN PRN Reason: Constipation Last Admin: 09/29/19 12:25 Dose: 2 tablet Documented by: Simethicone (Mylicon) 80 mg PO PCHS PRN PRN Reason: Indigestion/stomach pain Last Admin: 09/30/19 20:44 Dose: 80 mg Documented by: Sodium Chloride () 5 - 15 ml IV UD PRN PRN Reason: SALINE FLUSH Last Admin: 09/30/19 12:27 Dose: 10 ml Documented by: Medical Necessity - Tobacco Use Smoking Status: Current every day smoker Assessment/Plan All Active Problems (Last Reviewed 09/24/19 @ 15:43 by Loni Mcfarlane) Abnormal ultrasound (Resolved) Oligohydramnios (Resolved) Tetanus, diphtheria, and acellular pertussis (Tdap) vaccination declined (Acute) Influenza vaccination declined (Acute) Obesity affecting (Resolved) (Resolved) Supervision of high risk , antepartum (Resolved) Tobacco use complicating (Resolved) s/p LTCS PPD # 3 1. routine post care 2. breast feeding- support given 3. rh positive 4. rubella immune 5. home today
--- NOTE | 2019-10-01 07:43 | DCINST_ITS ---
Additional Instructions: If you experience any of the following, contact your healthcare provider. * Bleeding that soaks a pad every hour for 2 hours * Fever 100.4 or higher * Unrelieved incision or abdominal pain * Swelling, redness, discharge or bleeding from your incision or episiotomy site * Your incision begins to separate * Problems urinating (including inability to urinate or burning while urinating). * Visual changes * Severe headache * Flu-like symptoms * Pain or redness in one of both of your breasts * Pain, warmth, tenderness or swelling in your legs, especially the calf area * Frequent nausea and vomiting * Symptoms of depression or anxiety If you experience any of the following, call 911 or go to the nearest Emergency Room. * Chest pain * Problems breathing * Seizure activity * Partial or complete paralysis of a body part, slurred speech, weakness or drooping of the face, or a sudden inability to walk or hold your balance Allergies/Adverse Reactions: Allergies No Known Allergies Allergy (Verified 09/28/19 15:35) Medications to take at Discharge vitamin#30 30 mg iron-10 mg iron-folic acid 1 mg-omg3 capsule 1 cap PO DAILY cap 02/18/19 Naproxen [Naprosyn] 250 - 500 mg PO Q8H PRN PRN #30 tab 09/29/19 Oxycodone HCl/Acetaminophen [Percocet 5-325] 1 - 2 tab PO Q6H PRN PRN 7 Days #28 tab 09/29/19 The following prescriptions were given: Naproxen [Naprosyn] 250 - 500 mg PO Q8H PRN PRN #30 tab PRN Reason: MILD PAIN Transmission Status: Received by [facility] Oxycodone HCl/Acetaminophen [Percocet 5-325] 1 - 2 tab PO Q6H PRN PRN 7 Days #28 tab PRN Reason: Moderate-Severe pain Transmission Status: Received by [facility] Follow-Up: Call to make an appointment with your doctor for an incision check in 1-2 weeks. You will also need a 6 week post- follow up appointment. Test results from this visit will be discussed in further detail at your follow- up appointment, if applicable. Primary Care Physician: Zack Cosme DO [Primary Care Provider] -
--- NOTE | 2019-10-01 07:43 | PCM.DCCSEC ---
Additional Instructions: If you experience any of the following, contact your healthcare provider. Bleeding that soaks a pad every hour for 2 hours Fever 100.4 or higher Unrelieved incision or abdominal pain Swelling, redness, discharge or bleeding from your incision or episiotomy site Your incision begins to separate Problems urinating (including inability to urinate or burning while urinating). Visual changes Severe headache Flu-like symptoms Pain or redness in one of both of your breasts Pain, warmth, tenderness or swelling in your legs, especially the calf area Frequent nausea and vomiting Symptoms of depression or anxiety If you experience any of the following, call 911 or go to the nearest Emergency Room. Chest pain Problems breathing Seizure activity Partial or complete paralysis of a body part, slurred speech, weakness or drooping of the face, or a sudden inability to walk or hold your balance Allergies/Adverse Reactions: Allergies No Known Allergies Allergy (Verified 09/28/19 15:35) Medications to take at Discharge vitamin#30 30 mg iron-10 mg iron-folic acid 1 mg-omg3 capsule 1 cap PO DAILY cap 02/18/19 Naproxen [Naprosyn] 250 - 500 mg PO Q8H PRN PRN #30 tab 09/29/19 Oxycodone HCl/Acetaminophen [Percocet 5-325] 1 - 2 tab PO Q6H PRN PRN 7 Days #28 tab 09/29/19 The following prescriptions were given: Naproxen [Naprosyn] 250 - 500 mg PO Q8H PRN PRN #30 tab PRN Reason: MILD PAIN Transmission Status: Received by [facility] Oxycodone HCl/Acetaminophen [Percocet 5-325] 1 - 2 tab PO Q6H PRN PRN 7 Days #28 tab PRN Reason: Moderate-Severe pain Transmission Status: Received by [facility] Follow-Up: Call to make an appointment with your doctor for an incision check in 1-2 weeks. You will also need a 6 week post- follow up appointment. Test results from this visit will be discussed in further detail at your follow-up appointment, if applicable. Primary Care Physician: Zack Cosme DO [Primary Care Provider] -
[2019-10-01 08:53] VITALS: BP 129/77; PULSE 83; RESP 18; TEMP 36.6
== END 2019-10-01 12:10 | disposition home or self-care (01) | DRG 540 ==
PROVIDERS: Admitting Provider Obstetrics & Gynecology; Family Provider Family Medicine; PCP Family Medicine; Referring Provider Obstetrics & Gynecology; Visit Provider Obstetrics & Gynecology
DX: O41.03X0 Oligohydramnios, third trimester, not applicable or unspecified (principal); O28.3 Abnormal ultrasonic finding on antenatal screening of mother; O77.9 Labor and delivery complicated by fetal stress, unspecified; O36.8130 Decreased fetal movements, third trimester, not applicable or unspecified; O99.214 Obesity complicating childbirth; E66.01 Morbid (severe) obesity due to excess calories; O99.334 Smoking (tobacco) complicating childbirth; F17.200 Nicotine dependence, unspecified, uncomplicated; Z28.21 Immunization not carried out because of patient refusal; Z3A.40 40 weeks gestation of pregnancy; Z37.0 Single live birth
CPT/HCPCS: 59025; 59050; 76818; 85025; 85027; 86850; 86900; 86901; 88307; 99218; 99251; J7120; A4216; G0378; G0463

== ENCOUNTER → 2021-03-01 14:42 | Outpatient (CLI) | payer MEDICAID, SELFPAY ==
[2019-11-11 14:46] VITALS: BMI 51.5
[2021-03-01 17:25] LABS: hCG Titer Quant., Serum 7104 mIU/mL (1-3)
== END ==
PROVIDERS: PCP Family Medicine; Visit Provider Obstetrics & Gynecology
DX: N92.6 Irregular menstruation, unspecified (principal)
CPT/HCPCS: 36415; 84702

== ENCOUNTER → 2021-03-03 14:20 | Outpatient (CLI) | payer MEDICAID, SELFPAY ==
[2019-11-11 14:46] VITALS: BMI 51.5
[2021-03-03 15:38] LABS: hCG Titer Quant., Serum 10735 mIU/mL (1-3)
== END ==
PROVIDERS: PCP Family Medicine; Referring Provider Obstetrics & Gynecology; Visit Provider Obstetrics & Gynecology
DX: N91.2 Amenorrhea, unspecified (principal)
CPT/HCPCS: 36415; 84702

== ENCOUNTER → 2021-04-03 15:09 | Outpatient (CLI) | payer MEDICAID, SELFPAY ==
[2021-04-03 14:27] VITALS: BMI 52.7
[2021-04-03 15:53] LABS: Amphetamine Urine VISTA NEGATIVE (<1000 ng/mL); Barbiturate Urine VISTA NEGATIVE (< 200 ng/mL); Benzodiazepine Urine VISTA NEGATIVE (< 200 ng/mL); Cocaine Urine VISTA NEGATIVE (< 300 ng/mL); Ecstacy Urine VISTA NEGATIVE (< 500 ng/mL); Methadone Urine VISTA NEGATIVE (< 300 ng/mL); PCP Urine VISTA NEGATIVE (< 25 ng/mL); THC Urine VISTA NEGATIVE (< 50 ng/mL); Vista UDS pH Range 5
[2021-04-03 17:18] LABS: Absolute Lymphocyte Count 3.16 X10^3/uL (0.83-4.51); Absolute Neutrophil Count 5.7 X10^3/uL (2.0-7.7); Basophil# 0.07 X10^3/uL; Basophil% 0.7 % (0-1); Eosinophil# 0.23 X10^3/uL; Eosinophils% 2.3 % (0-5); Hemoglobin 13.2 g/dL (12.0-15.0); Lymphocyte # 3.16 X10^3/ul (0.83-4.51); Mean Corpuscular Hgb 29.5 pg (27.0-32.0); Mean Corpuscular Volume 89.5 fL (81-99); Mean Platelet Vol. 10.9 fl (6.2-12.0); Monocyte# 0.66 X10^3/uL; Monocyte% 6.7 % (0-10); NRBC Flagged by Analyzer 0 % (0-5); Neutrophil # 5.71 X10^3/uL (2.7-7.7); Platelet Count 324 K/mm3 (150-450); RBC Distribution Width CV 12.9 % (11.6-14.6); RBC Distribution Width SD 42.4 fl (35.1-43.9); Red Blood Count 4.47 M/mm3 (4.2-5.4); White Blood Count 9.9 K/mm3 (4.4-11.0)
[2021-04-03 17:50] LABS: Glucose Challenge Gest 1H 50g 102 mg/dL (70-140)
[2021-04-03 18:30] LABS: HIV - WCH Non-Reactive (Nonreactive); Hepatitis B Surface Antigen Non-Reactive (Nonreactive); Hepatitis C Antibody Non-Reactive (Nonreactive); Rubella IgG Reactive (Nonreactive); Syphilis Antibodies Non-reactive
[2021-04-05 20:10] LABS: Chlamydia By Nucleic Acid AMP Negative (Negative)
[2021-04-06 16:09] LABS: Gonococcus By Nucleic Acid AMP Negative (Negative)
== END ==
PROVIDERS: PCP Family Medicine; Referring Provider Obstetrics & Gynecology; Visit Provider Obstetrics & Gynecology
DX: O09.90 Supervision of high risk pregnancy, unspecified, unspecified trimester (principal)
CPT/HCPCS: 36415; 80307; 82950; 85025; 86703; 86762; 86780; 86803; 86850; 86900; 86901; 87086; 87088; 87340; 87491; 87591

== ENCOUNTER → 2021-04-10 08:46 | Outpatient (CLI) | payer MEDICAID, SELFPAY ==
[2021-04-03 15:17] VITALS: BMI 52.7
[2021-04-10 09:48] LABS: NATERA MAILED SPECIMEN
== END ==
PROVIDERS: PCP Family Medicine; Referring Provider Obstetrics & Gynecology; Visit Provider Obstetrics & Gynecology
DX: Z34.81 Encounter for supervision of other normal pregnancy, first trimester (principal)
CPT/HCPCS: 36415

== ENCOUNTER → 2021-05-05 11:26 | Outpatient (CLI) | payer MEDICAID, SELFPAY ==
[2021-05-05 10:36] VITALS: BMI 52.7
[2021-05-05 12:40] LABS: NATERA MAILED SPECIMEN
== END ==
PROVIDERS: PCP Family Medicine; Visit Provider Obstetrics & Gynecology
DX: O09.90 Supervision of high risk pregnancy, unspecified, unspecified trimester (principal); Z3A.00 Weeks of gestation of pregnancy not specified
CPT/HCPCS: 36415

== ENCOUNTER → 2021-07-28 09:29 | Outpatient (CLI) | payer MEDICAID, SELFPAY ==
[2021-07-28 09:46] LABS: Basophil# 0.04 X10^3/uL; Basophil% 0.5 % (0-1); Eosinophil# 0.15 X10^3/uL; Eosinophils% 1.7 % (0-5); Hematocrit 35.3 % (37-47); Hemoglobin 11.7 g/dL (12.0-15.0); Lymphocyte % 22.7 % (19-41); Mean Corp Hgb Conc 33.1 g/dL (32-36); Mean Corpuscular Hgb 29.9 pg (27.0-32.0); Mean Corpuscular Volume 90.3 fL (81-99); Mean Platelet Vol. 10.5 fl (6.2-12.0); Monocyte# 0.54 X10^3/uL; Monocyte% 6.1 % (0-10); NRBC Flagged by Analyzer 0 % (0-5); Neutrophil # 6.04 X10^3/uL (2.7-7.7); Neutrophil % 68.5 % (47-70); Platelet Count 335 K/mm3 (150-450); RBC Distribution Width CV 13.2 % (11.6-14.6); RBC Distribution Width SD 43.3 fl (35.1-43.9); Red Blood Count 3.91 M/mm3 (4.2-5.4); White Blood Count 8.8 K/mm3 (4.4-11.0)
[2021-07-28 10:32] LABS: Glucose Challenge Gest 1H 50g 114 mg/dL (70-140)
[2021-07-28 17:36] LABS: Xtra Tube EP Lab EXTRA TUBE
== END ==
PROVIDERS: PCP Family Medicine; Visit Provider Obstetrics & Gynecology
DX: Z34.92 Encounter for supervision of normal pregnancy, unspecified, second trimester (principal); Z13.1 Encounter for screening for diabetes mellitus
CPT/HCPCS: 36415; 82950; 85025

== ENCOUNTER 2021-08-10 10:10 | Outpatient (CLI) | payer MEDICAID, SELFPAY ==
[2021-08-10 10:25] VITALS: BMI 55.5
--- NOTE | 2021-08-10 10:27 | US_ITS ---
STUDY: RENAL ULTRASOUND - COMPLETE REASON FOR EXAM: Female, 36 years old. Kidney stone, Left flank pain. Pt is 28 weeks TECHNIQUE: Ultrasound evaluation of the kidneys was performed with real-time and static maldonado-scale imaging. COMPARISON: None. FINDINGS: RIGHT KIDNEY: Normal location of the right kidney, which is normal in size. The right kidney measures 10.2 cm x 5.6 x 5.6 cm. There is a normal cortex of the right kidney. The renal cortex measures 1.5 cm. There is no right renal mass or cyst. There are no right renal calculi. There is no right hydronephrosis. DISTAL RIGHT URETER: There is non-visualization of the distal right ureter. There is no demonstrated right ureterovesical junction calculus. There is no demonstrated right ureteral jet. LEFT KIDNEY: Normal location of the left kidney, which is normal in size. The left kidney measures 12.8 cm x 5.6 x 6.5 cm. There is a normal cortex of the left kidney. The renal cortex measures 1.8 cm. There is no left renal mass or cyst. There is a 6 mm x 9 mm calculus in the lower pole calyx of the left kidney. There is no left hydronephrosis. DISTAL LEFT URETER: There is non-visualization of the distal left ureter. There is no demonstrated left ureterovesical junction calculus. There is no demonstrated left ureteral jet. BLADDER: The bladder is not adequately distended at this time. There is a normal wall thickness of the distended urinary bladder. There is no demonstrated mass within the urinary bladder. There are no demonstrated bladder calculi. US/Kidney and Bladder IMPRESSION: Findings suggestive of a 6 mm x 9 mm calculus in the lower pole calyx left kidney. Electronically Signed: Randall Snow MD at 13:42 EST , Service support ,
[2021-08-10 10:31] VITALS: BP 129/58; PULSE 107; TEMP 36.7
[2021-08-10 10:32] VITALS: PULSE 96; O2SAT 98
[2021-08-10 10:37] VITALS: PULSE 94; O2SAT 97
[2021-08-10] MEDS: Lactated Ringers 1,000 ML 999 ML IV (12:15)
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
[2021-08-10 15:28] VITALS: BP 127/67; PULSE 122
== END 2021-08-10 12:40 | disposition home or self-care (01) ==
LOC: WPOUT 10:14 → WP 10:20
PROVIDERS: PCP Family Medicine; Visit Provider Obstetrics & Gynecology
DX: O26.833 Pregnancy related renal disease, third trimester (principal); N20.0 Calculus of kidney; O34.211 Maternal care for low transverse scar from previous cesarean delivery; Z3A.28 28 weeks gestation of pregnancy; Z87.891 Personal history of nicotine dependence
CPT/HCPCS: 96360; 59025; 59050; 76770; 87086; 87088; 99218; G0378

== ENCOUNTER → 2021-09-04 10:55 | Outpatient (CLI) | payer MEDICAID, SELFPAY ==
--- NOTE | 2021-09-04 10:57 | US_ITS ---
STUDY: SECOND AND THIRD TRIMESTER OBSTETRICAL ULTRASOUND - LIMITED REASON FOR EXAM: Female, 36 years old growth US at 32 weeks LMP: 01/21/2021 PRIOR ULTRASOUND: None. TECHNIQUE: Transabdominal TECHNICAL QUALITY: Adequate. FINDINGS: There is a single intrauterine fetus. The fetus is in a cephalic presentation. There is demonstrated cardiac activity with a heart rate of 137 bpm. There is a normal amniotic fluid volume. The largest amniotic fluid pocket measures 8.8 cm. The amniotic fluid index (HALEY) is 12.06 cm. The placenta is posterior in location and is not low lying. There are Grade 1 placental changes. The cervix measures 5.33 cm in length. BIOMETRY: BPD: 8.02 cm: 32 weeks, 1 days HC: 31.21 cm: 34 weeks, 6 days AC: 29.53 cm: 33 weeks, 3 days FL: 6.05 cm: 31 weeks, 3 days Age by LMP: 32 weeks, 2 days. RONAK by LMP: 10/28/2021. age by current US: 33 weeks, 2 days. RONAK by current US: 10/21/2021. Estimated weight: 2052 grams, +/- 308 grams, 55.86 percentile. US/OB Limited With Biometrics IMPRESSION: Single live intrauterine at 33 weeks, 2 days by current ultrasound with RONAK of 10/21/2021. Heart rate 137 bpm. No suspicious sonographic findings. Electronically Signed: Blaine Hernández MD at 16:11 EST , Service support ,
== END ==
PROVIDERS: PCP Family Medicine; Referring Provider Obstetrics & Gynecology; Visit Provider Obstetrics & Gynecology
DX: Z36.89 Encounter for other specified antenatal screening (principal); O99.213 Obesity complicating pregnancy, third trimester; E66.9 Obesity, unspecified; Z3A.33 33 weeks gestation of pregnancy
CPT/HCPCS: 76816; 76817

== ENCOUNTER 2021-09-25 11:54 | Outpatient (CLI) | payer MEDICAID, SELFPAY | END 2021-09-25 23:59 | disposition home or self-care (01) | LOC: US 11:56 | PROVIDERS: PCP Family Medicine; Referring Provider Obstetrics & Gynecology; Visit Provider Obstetrics & Gynecology | DX: R69 Illness, unspecified (principal) ==

== ENCOUNTER 2021-10-05 08:31 | Outpatient (CLI) | payer MEDICAID, SELFPAY ==
--- NOTE | 2021-10-05 08:33 | US_ITS ---
STUDY: SECOND AND THIRD TRIMESTER OBSTETRICAL ULTRASOUND - LIMITED REASON FOR EXAM: Female, 36 years old growth US at 36 weeks LMP: 01/21/2021. PRIOR ULTRASOUND: Comparison is made with prior study dated 06/05/2021. TECHNIQUE: Transabdominal TECHNICAL QUALITY: Adequate. FINDINGS: There is a single intrauterine fetus. The fetus is in a cephalic presentation. There is demonstrated cardiac activity with a heart rate of 169 bpm. There is a normal amniotic fluid volume. The largest amniotic fluid pocket measures 6.43 cm. The amniotic fluid index (HALEY) is 14.19 cm. The placenta is fundal in location. There are Grade 2 placental changes. The cervix was not well seen due to the head positioning. BIOMETRY: BPD: 8.92 cm: 36 weeks, 1 days HC: 32.88 cm: 37 weeks, 3 days AC: 35.01 cm: 39 weeks, 0 days FL: 6.75 cm: 34 weeks, 5 days Age by LMP: 36 weeks, 5 days. RONAK by LMP: 10/28/2021. age by prior US: 37 weeks, 5 days. RONAK by prior US: 10/21/2021. age by current US: 37 weeks, 6 days. RONAK by current US: 10/27/2021. Estimated weight: 3216 grams, +/- 470 grams, 74 percentile. US/OB Limited With Biometrics IMPRESSION: Single live intrauterine gestation with a mean gestational age of 37 weeks and 5 days. The measurements obtained today fall within the normal expected range. Electronically Signed: Randall Snow MD at 13:20 EST , Service support ,
== END 2021-10-05 23:59 | disposition short-term general hospital (02) ==
PROVIDERS: PCP Family Medicine; Referring Provider Obstetrics & Gynecology; Visit Provider Obstetrics & Gynecology
DX: O99.211 Obesity complicating pregnancy, first trimester (principal); Z3A.00 Weeks of gestation of pregnancy not specified
CPT/HCPCS: 76816

== ENCOUNTER 2021-10-05 20:09 | Emergency (ER) | payer MEDICAID, SELFPAY ==
[2021-10-05 20:09] VITALS: BP 108/73; PULSE 118; RESP 18; TEMP 37.2; O2SAT 97; BMI 56.0
[2021-10-05] MEDS: Acetaminophen 500 MG Tablet 1000 MG PO (21:02)
--- NOTE | 2021-10-05 21:44 | EDS_ITS ---
HPI HPI - URI History of Present Illness Chief Complaint: Shortness of Breath Informant: patient Onset/Context/Timing Onset: Today Context: Gradual Onset Quality: Achy Location: All over and head Current Severity: Moderate Maximum Severity: Moderate Associated Symptoms Associated Symptoms: Positive for Headache, Myalgias, Shortness of Breath (mild) and Nonproductive cough; Negative for Nausea, Vomiting and Chest Pain Narrative Narrative: Patient with URI symptoms that started today including fevers and feeling very malaised and tired. She states she feels a little short of breath when she walks. No chest discomfort. She is in her third trimester at 36 weeks , no abdominal pain or vaginal discharge/bleeding/leakage, she states she is apprehensive about undergoing COVID testing but eventually is amenable to it after we discussed the risks and benefits of nailing. She is unvaccinated against COVID. ROS ROS ED Constitutional Constitutional ED: Reports body ache(s), chills, fatigue, fever(s), headache(s) and malaise Eyes Eyes: Denies change in vision or diplopia ENT ENT ED: Denies rhinorrhea or sore throat Cardiovascular Cardiovascular: Denies chest pain or palpitations Respiratory/Chest Respiratory/Chest: Reports cough, dyspnea and dyspnea on exertion Gastrointestinal Gastrointestinal: Denies abdominal pain, diarrhea, nausea or vomiting Genitourinary Genitourinary ED: Denies dysuria or hematuria Musculoskeletal Musculoskeletal: Denies back pain or neck pain Integumentary Denies abscess or rash Neurologic Neurologic: Reports headache(s); Denies paresthesias or weakness Psychiatric Psychiatric: Denies anxiety or suicidal thoughts PFSH PFSH no medical history Home Medications prenat.vits,jessica,[id number] 1 tab PO DAILY 03/22/21 [History Last Taken 08/09/21] famotidine 20 mg tablet 20 mg PO DAILY #30 tab 09/25/21 [Rx Last Taken Unknown] Allergy/AdvReac Type Severity Reaction Status Date / Time No Known Allergies Allergy Verified 10/05/21 20:12 Family History Father Diabetes Surgical History delivery delivered Social History adopted: No household members: spouse and children number of children: 1 current occupational status: unemployed current occupation: [employer] pets and animals: Yes pets and animals: dog(s) Smoking Status: Former smoker alcohol intake: never substance use type: does not use caffeine: Yes what type of physical activity do you participate in: walking seatbelt use: always do you feel safe at home: Yes additional social history: - Hauls livestock Patient is currently unemployed EXAM Physical Exam Const Vital Signs: 10/05/21 20:09 10/05/21 21:03 Temperature 98.9 F Temperature Source Temporal Pulse Rate 118 H Respiratory Rate 18 Respiratory Effort Normal Non-Labored Respiratory Depth Normal Respiratory Pattern Normal Blood Pressure 108/73 Blood Pressure Mean 84 Pulse Ox 97 Oxygen Delivery Method Room Air Positive well nourished and well developed Constitutional Narrative: Malaised-appearing, no distress General Appearance ED: well developed and NAD HEENT Reports moist mucous membranes normocephalic and atraumatic Eyes PERRL and EOMs intact bilaterally Neck full ROM and supple Resp normal respiratory effort and clear to auscultation bilaterally Cardio regular rate, regular rhythm and no murmurs Rate: Negative for tachycardic GI non-tender and non-distended Auscultation: normoactive bowel sounds Palpation: soft Back/Spine no CVA tenderness General Back: other FROM Extremity normal to inspection and no calf tenderness General Extremety ED: Negative for edema, pulses abnormal or tenderness General Extremity: Negative for edema or pulses abnormal Neuro oriented x3, CN's II-XII intact bilaterally and no sensory deficits noted Sensorium / Orientation: awake and alert Motor Exam: strength 5/5 throughout Skin no rashes or lesions noted and no wounds MDM MDM MDM Narrative Medical decision making narrative: Rapid COVID came back positive. We did send rapid influenza at the same time in case of the air was a false negative rapid COVID, it came back negative. Patient is oxygenating well and doing well clinically. Since she is and obese she is a candidate for monoclonal antibody infusion therapy to which she was referred and given appropriate discharge instructions she is comfortable with the plan. She was given Tylenol for her headache. Discharge Plan Triage Chief Complaint: Shortness of Breath ED Provider: Leonardo Packer Dx/Rx/DC Orders Clinical Impression: COVID-19, Third trimester Instructions: Coronavirus Disease 2019 (COVID-19): Caring for Yourself or Others, ED - COVID Monoclonal AB Infusion ... Prescriptions: No Action prenat.vits,jessica,[id number] Tablet 1 tab PO DAILY RF: 0 famotidine [Pepcid] 20 mg tablet 20 mg PO DAILY Qty: 30 RF: 6 Primary Care Provider: Zack Cosme Referrals: Zack Cosme DO [Primary Care Provider] - Activity Restrictions/Additional Instructions: Try to get a home portable pulse oximeter and closely watch your oxygen levels periodically. If you stay below 90% for more than a minute or so, and/or you are feeling like your breathing is getting worse, return to the emergency department for further evaluation. You are a candidate for monoclonal antibody infusion therapy, see the attached instructions for more information. They will call you concerning when they want you to come to the clinic to get the infusion which is a one-time dose to help protect you from getting more ill and becoming hospitalized with life- threatening illness due to Covid given your risk for worsening. Disposition Disposition: Home, Self Care Discharge Date/Time: 10/05/21 21:59
== END 2021-10-05 21:59 | disposition home or self-care (01) ==
PROVIDERS: Emergency Provider Emergency Medicine; PCP Family Medicine; Visit Provider Emergency Medicine
DX: O98.513 Other viral diseases complicating pregnancy, third trimester (principal); O99.214 Obesity complicating childbirth; U07.1 COVID-19; Z87.891 Personal history of nicotine dependence; Z3A.36 36 weeks gestation of pregnancy
CPT/HCPCS: 76816; 87426; 87804; 99283

== ENCOUNTER 2021-10-23 05:30 | Inpatient (IN) | payer MEDICAID, SELFPAY ==
[2021-10-23] VITALS (16 sets, daily range): BP systolic 97–128; BP diastolic 51–70; PULSE 85–117; RESP 12–25; TEMP 35.9–36.6; O2SAT 95–98; BMI 57.2
[2021-10-23] MEDS: Lactated Ringers 1,000 ML 999 ML IV (05:55)
[2021-10-23 06:12] LABS: Absolute Lymphocyte Count 1.93 X10^3/uL (0.83-4.51); Absolute Neutrophil Count 5.5 X10^3/uL (2.0-7.7); Basophil# 0.05 X10^3/uL; Basophil% 0.6 % (0-1); Eosinophil# 0.13 X10^3/uL; Eosinophils% 1.6 % (0-5); Hematocrit 36.4 % (37-47); Lymphocyte # 1.93 X10^3/ul (0.83-4.51); Lymphocyte % 23.3 % (19-41); Mean Corpuscular Hgb 29.5 pg (27.0-32.0); Mean Corpuscular Volume 89.4 fL (81-99); Monocyte# 0.63 X10^3/uL; Monocyte% 7.6 % (0-10); NRBC Flagged by Analyzer 0 % (0-5); Neutrophil # 5.54 X10^3/uL (2.7-7.7); Neutrophil % 66.7 % (47-70); Platelet Count 304 K/mm3 (150-450); RBC Distribution Width CV 14.3 % (11.6-14.6); RBC Distribution Width SD 46.5 fl (35.1-43.9); Red Blood Count 4.07 M/mm3 (4.2-5.4); White Blood Count 8.3 K/mm3 (4.4-11.0)
[2021-10-23] MEDS: Acetaminophen 500 MG Tablet 1000 MG PO ×3 (06:35→18:10)
[2021-10-23] MEDS: Lactated Ringers 1,000 ML 150 ML IV (06:56)
[2021-10-23] MEDS: Sodium Citrate/Citric Acid 30 ML UDC PO (06:56)
[2021-10-23] MEDS: Cefazolin 2 GM in 0.9% Normal Saline 100 ML IV (07:24)
--- NOTE | 2021-10-23 07:45 | FALS_PTH ---
PATIENT: EDGAR ESTRADA LOC: [facility] U#:[id number] AGE/SX: 36/F ROOM: WP007 RE10/23/[address]: Dr. Katerina Gil MD : 1985 BED: 1 DIS: 10/24/2021 SPEC #: [id number] RECD: 10/23/21 09:16 STATUS: OSKAR AKASH #: [id number] ERIK: 10/23/21 07:[address]: Katerina Gil DEPT: SURGICAL PATHOLOGY RECD BY: Joya Burns ENTERED: 10/23/21 09:16 SP TYPE: FALL TUBES OTHR DR: Dr. Zack Cosme, Tissues: Fallopian tube Procedures: Surgery Specimen Level II HEADER OPERATION: Tubal ligation PRE-OP DIAGNOSIS: Sterilization TISSUE SUBMITTED: Bilateral fallopian tubes MICROSCOPIC DIAGNOSIS Right fallopian tube, partial salpingectomy: Complete segment of fallopian tube with no pathologic change. Left fallopian tube, partial salpingectomy: Complete segment of fallopian tube with no pathologic change. AM:ace 10/24/2021 MICROSCOPIC DESCRIPTION Slides are reviewed. GROSS DESCRIPTION Received in fixative is one container labeled with the patient's name and designated bilateral fallopian tubes, left tube suture. The specimen consists of bilateral fallopian tubes including fimbrial ends. The right fallopian tube measures 7 cm in length and 0.7 cm in diameter and the left fallopian tube measures 8 cm in length and 0.7 cm in diameter. Sections reveal unremarkable cut surfaces. Supervisor Alteration Workroom sections are submitted in two cassettes as follows: 1 ? right fallopian tube, 2 ? left fallopian tube. / EMMETT:ace 10/23/2021 TC:4 CPT: 28986 x2
--- NOTE | 2021-10-23 08:25 | OP.PCM_ITS ---
Assessment & Plan (1) Sterilization: COMMENT: title 19 signed 08/25 (2) Kidney stone complicating : (3) Supervision of high risk , antepartum: COMMENT: PRR RONAK 10/28/21 [facility]: [place]. Spouse: Girma (4) : QUALIFIERS: Weeks of gestation: 38 weeks Qualified Code(s): Z3A.38 - 38 weeks gestation of COMMENT: nl carrier screen, NIPT low risk, dec afp scren. anatomy nl. (5) History of section: COMMENT: RLTCS with SM and BS 10/23/21 @ 7:30 (6) Obesity affecting : QUALIFIERS: Trimester: first trimester Qualified Code(s): O99.211 - Obesity complicating , first trimester COMMENT: GCT at NOB NL; weekly nsts after 32 weeks and growth us q 4 weeks; NL growth 09/04, nl growth 10/05 (7) delivery delivered: COMMENT: RLTCS BS SM michael Guthrie (8) Status post bilateral salpingectomy: Maternal Data Information RONAK Calculator Estimated Delivery Date Method Current WG Current Estimate 10/28/21 LMP (Certain) 39w 2d Other Estimates 10/24/21 Ultrasound #1 39w 6d Final RONAK Source: LMP Details Operative Information Date of Procedure: 10/23/21 Pre-Operative Diagnosis: Previous see PL Post-Operative Diagnosis: same Indications for : Repeat Elective (and BS) Classification: Scheduled Type of Anesthesia: Spinal Special Medications: none Antibiotic Given: Ancef 2 grams IV x1 Drain: Ashby to straight drain Estimated Blood Loss: 800 Fluids Replaced: crystalloid Findings Description of Procedure: Spinal anesthesia was placed without difficulty. Ashby catheter was placed. The patient was placed in the dorsal supine position with leftward tilt. Patient was prepped and draped in the normal sterile fashion. Pfannenstiel skin incision was made with the scalpel and carried through to the underlying layer of fascia with the scalpel. Fascia was nicked in the midline and the incision extended laterally. The rectus bellies were dissected off superiorly and inferiorly with out complication both sharply and bluntly. The peritoneum was entered digitally. The incision was stretched and a low transverse uterine incision was made with the scalpel. The infant's head was delivered atraumatically followed by the anterior and posterior shoulders without complication the rest of the infant delivered. The cord was clamped and cut and the was handed off to awaiting nurse. The placenta was delivered spontaneously immediately following and was noted to be intact and have a three-vessel cord. The uterus was exteriorized cleared of all clots and debris, and the incision was closed in a single closure using #1 Monocryl. The ovaries and fallopian tubes were noted to be within normal limits. Patient had desired sterilization and was counseled preoperatively regarding irreversibility and permanency. Therefore bilateral fallopian tubes were elevated and transected across using a LigaSure device starting proximally to distally without complication the entire fallopian tubes were removed. The uterus was returned to the maternal abdomen and gutters were cleared of all clots and debris. The peritoneum was closed with 3-0 Monocryl in a running fashion. Gloves were changed prior to fascial closure. Fascia was closed with 0 PDS in a running fashion. Subcutaneous tissue was copiously irrigated and the skin was closed with 3-0 Monocryl in a subcuticular fashion. Mepilex dressing was applied without complication. Patient was taken to recovery in stable condition. Amniotic Membrane Rupture Type: Artificial Amniotic Fluid Description: Clear Placenta Disposition: [facility] Cord Vessel Description: 3 Vessels Cord Entanglement: None Delayed Cord Clamping: Yes Complications Risks of Surgery Discussed w/Patient: Bleeding, Infection, Need for Future C- Sections and Injury to surrounding structure(s) including bowel and bladder Vaginal Delivery Complication Complications: None Admit VTE Documentation VTE Present on Admission: No VTE Mechan Device Prophylaxis: SCD's Multi Select Codes Urinary/Genital Urinary/Genital CPT Codes: 61486 C/S+TL (bilateral salpingectomy) and 60462 delivery+PP Care([facility])
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
--- NOTE | 2021-10-23 08:29 | PCM.DC ---
Discharge Instructions Diet Discharge Diet: No restrictions Activity Discharge Activity: May Not Drive (for 2 weeks or while taking narcotic pain medications.), May Shower and May Take a Tub Bath (in 7 days) May shower in (days): 0 May resume sexual activity in: 4-6 weeks Weight Bearing Status: Full weight bearing Lifting Restrictions: 20 pounds Dressing / Incision Call your doctor if your incision/area has: Continuous Slow Oozing, Sudden Increased Bleeding, Increased Pain/ Swelling, Increased Redness and Foul Smelling Discharge Call your doctor if you observe: Fever of 101 or Higher and Using more than 1 pad per hour (for 2 hours) Suture Line Care: Avoid Pulling/Pushing and Avoid Pinching/Bending Cleanse incision/area with: Soap & Water and Keep Dressing Clean & Dry Follow Up Care Please Follow Up With: Katerina Gil MD When: Call [phone] to make an appointment for an incision check in 1-2 weeks. Test Results: Test results from this visit will be discussed in further detail at your follow-up appointment, if applicable. Discharge Plan Admission Admit Date/Time: 10/23/21 05:30 Primary Reason for Your Visit: csection Attending Provider: Katerina Gil Primary Care Provider: Zack Cosme Discharge Orders/Prescriptions Prescriptions: New oxycodone-acetaminophen [Percocet] 5-325 mg tablet 1 tab PO Q6H PRN (Reason: pain) 7 Days Qty: 20 RF: 0 naproxen [naproxen] 500 MG tablet 500 mg PO BID PRN PRN (Reason: Pain) Qty: 30 RF: 1 Continued prenat.vits,jessica,[id number] Tablet 1 tab PO DAILY RF: 0 famotidine [Pepcid] 20 mg tablet 20 mg PO DAILY RF: 0 Referrals / Follow Up: Zack Cosme DO [Primary Care Provider] - Disposition Disposition (needs filled in before D/C Order can be placed): Home, Self Care
[2021-10-23] MEDS: Oxytocin 30 units/NS 500 ml 30 UNITS/500 ML IV.SOLN 167 UNITS IV (08:50)
[2021-10-23 09:11] LABS: Pathology Specimen OB SEE PATHOLOGY REPORT
[2021-10-23] MEDS: Ketorolac 30 MG/ML Syringe IV ×3 (09:23→20:33)
[2021-10-23] MEDS: HYDROmorphone 1 MG/ML Syringe IV ×2 (10:03→13:16)
[2021-10-23] MEDS: Senna/Docusate Sodium 1 Tablet PO (11:26)
[2021-10-23] MEDS: Lactated Ringers 1,000 ML 100 ML IV (13:05)
[2021-10-23] MEDS: oxyCODONE 5 MG Tablet PO (18:16)
[2021-10-23] MEDS: Enoxaparin 40 MG/0.4 ML Syringe SC (20:34)
[2021-10-23] MEDS: 0.9% Saline Lock 10 ML Syringe IV (20:34)
[2021-10-24] MEDS: 0.9% Saline Lock 10 ML Syringe IV ×2 (01:18→02:33)
[2021-10-24] MEDS: Acetaminophen 500 MG Tablet 1000 MG PO ×2 (01:21→06:03)
[2021-10-24] MEDS: Ketorolac 30 MG/ML Syringe IV (02:33)
[2021-10-24] MEDS: oxyCODONE 5 MG Tablet PO (05:16)
[2021-10-24 05:19] VITALS: BP 113/65; PULSE 90; RESP 18; TEMP 36.4
[2021-10-24 05:37] LABS: Hematocrit 30.2 % (37-47); Hemoglobin 9.9 g/dL (12.0-15.0); Mean Corp Hgb Conc 32.8 g/dL (32-36); Mean Corpuscular Hgb 30.1 pg (27.0-32.0); Mean Corpuscular Volume 91.8 fL (81-99); Mean Platelet Vol. 10.8 fl (6.2-12.0); Platelet Count 259 K/mm3 (150-450); RBC Distribution Width CV 14.5 % (11.6-14.6); RBC Distribution Width SD 48.5 fl (35.1-43.9); Red Blood Count 3.29 M/mm3 (4.2-5.4); White Blood Count 9.6 K/mm3 (4.4-11.0)
--- NOTE | 2021-10-24 07:41 | NURSING ---
Pt declines baby bath demo and initial bath. States will give once gets home. Instructed to do sponge bath until baby's cord falls off. Declines questions/concerns regarding baby bath.
--- NOTE | 2021-10-24 07:53 | PCM.PN.OB ---
Subjective Subjective Patient doing well without complaints. Tolerating PO. Ambulating and voiding without difficulty. Feeding well. Denies chest pain, shortness of breath, calf pain/swelling, fevers, chills, lightheadedness. Objective Data Objective Data Vital Signs: Vital Signs Temp Pulse Resp BP Pulse Ox 97.5 F L 90 18 113/65 95 10/24/21 05:19 10/24/21 05:19 10/24/21 05:19 10/24/21 05:19 10/23/21 15:01 Oxygen Delivery Method Room Air Weight: 255 lb Body Mass Index (BMI) 57.2 Intake & Output: Intake and Output for Last 24 Hours 10/22/21 10/23/21 10/24/21 23:59 23:59 23:59 Intake Total 3891.66 / 3891.66 Output Total 1950 / 1950 Balance 1941.66 / 1941.66 Lab / Micro Data Result Diagrams: 10/24/21 05:25 Labs: Laboratory Results - last 24 hr 10/23/21 05:55: Blood Type A POSITIVE, Antibody Screen NEGATIVE 10/24/21 05:25: WBC 9.6, RBC 3.29 L, Hgb 9.9 L, Hct 30.2 L, MCV 91.8, MCH 30.1, MCHC 32.8, RDW Std Deviation 48.5 H, RDW Coeff of Onofre 14.5, Plt Count 259, MPV 10.8 Physical Exam Const alert and oriented x3 HEENT normocephalic Eyes PERRL Neck full ROM Resp normal respiratory effort GI soft to palpation GI Narrative: FF below U. Dressing dry and intact Palpation: tender other (appropriately) Assessment & Plan (1) delivery delivered: COMMENT: GENETCRyland BS LAURA michael Guthrie (2) Status post bilateral salpingectomy: PLAN: s/p LTCS PPD # 1 1. routine post care 2. breast feeding- support given 3. rh positive 4. rubella immune 5. home today
[2021-10-24] MEDS: Senna/Docusate Sodium 1 Tablet PO (09:09)
[2021-10-24] MEDS: Enoxaparin 40 MG/0.4 ML Syringe SC (09:10)
[2021-10-24 09:22] VITALS: BP 116/69; PULSE 88; RESP 16; TEMP 36.2
[2021-10-24] MEDS: Naproxen 500 MG Tablet PO (11:07)
== END 2021-10-24 11:50 | disposition home or self-care (01) | DRG 539 ==
PROVIDERS: Admitting Provider Obstetrics & Gynecology; PCP Family Medicine; Referring Provider Obstetrics & Gynecology; Visit Provider Obstetrics & Gynecology
PROC: 10D00Z1 Extraction of Products of Conception, Low, Open Approach (ICD-10-PCS; CPT 59514; principal; 2021-10-23 07:15)
DX: O34.211 Maternal care for low transverse scar from previous cesarean delivery (principal); E66.9 Obesity, unspecified; K21.9 Gastro-esophageal reflux disease without esophagitis; O99.62 Diseases of the digestive system complicating childbirth; O99.214 Obesity complicating childbirth; Z30.2 Encounter for sterilization; O99.892 Other specified diseases and conditions complicating childbirth; N20.0 Calculus of kidney; Z37.0 Single live birth; Z56.0 Unemployment, unspecified; Z3A.39 39 weeks gestation of pregnancy; Z87.891 Personal history of nicotine dependence; Z86.16 Personal history of COVID-19
CPT/HCPCS: 59050; 85025; 85027; 86850; 86900; 86901; 88302; 99218; 99251; J7120; A4216; G0378; G0463; J2405

== ENCOUNTER 2021-11-10 13:02 | Outpatient (CLI) | payer MEDICAID, SELFPAY ==
--- NOTE | 2021-11-10 13:04 | VDLE_ITS ---
Reason For Study: Swelling Procedure LEFT This is a venous duplex using B-mode, color GSV is normal. flow and spectral Doppler. CFV is compressible, spontaneous, phasic, Exam performed in department. competent, and demonstrates normal A preliminary report was called and/or faxed augmentation. to Loni DAVID. FV is compressible, spontaneous, phasic, competent and demonstrates normal augmentation. POP V is compressible, spontaneous, phasic, competent and demonstrates normal augmentation. T/P Trunk is compressible. PTV is compressible. LT PerV is compressible. Thrombus filled varicose veins noted in the left prox-mid anterior thigh. VL/Venous Duplex US, Unilateral Interpretation Summary There is no evidence of left lower extremity deep vein thrombosis. Left great s aphenous vein appears patent and compressible segmentally. Superficial thrombophlebitis varicose vein s left proximal to mid anterior thigh Ordering Physician: Katerina Gil Referring Physician: Zack Cosme Performed By: Nicolle Guzman RVT
== END 2021-11-10 23:59 | disposition home or self-care (01) ==
LOC: CVS 13:03
PROVIDERS: PCP Family Medicine; Referring Provider Obstetrics & Gynecology; Visit Provider Obstetrics & Gynecology
DX: I80.02 Phlebitis and thrombophlebitis of superficial vessels of left lower extremity (principal); R60.0 Localized edema
CPT/HCPCS: 93971

== ENCOUNTER 2024-03-14 08:39 | Emergency (ER) | payer OTHER, SELFPAY ==
[2024-03-14 08:39] VITALS: BP 148/74; PULSE 72; PULSE 77; RESP 18; TEMP 36.2; O2SAT 97; O2SAT 98; BMI 53.8
--- NOTE | 2024-03-14 09:12 | US_ITS ---
INDICATION: menorrhagia EXAMINATION: Ultrasound US Transvaginal Non-OB TECHNIQUE: Transvaginal (for optimal evaluation of the adnexa) pelvic ultrasound was performed. Grayscale, spectral waveform, and color flow Doppler evaluation of the adnexa. COMPARISON: No relevant prior comparison study available FINDINGS: UTERUS: Anteverted. The uterus measures 9.4 x 4.1 x 3.8 cm. There is no uterine mass. The endometrial stripe measures 6.7 mm in AP diameter which is within normal limits. RIGHT OVARY: Not visualized. LEFT OVARY: Not visualized. FREE FLUID: None. US/Transvaginal Non- IMPRESSION: 1. Nonvisualization of both ovaries. 2. Otherwise unremarkable examination. Electronically Signed: Fareed Broussard MD at 11:11 EDT ,
[2024-03-14 09:50] LABS: Absolute Lymphocyte Count 3.27 X10^3/uL (0.83-4.51); Absolute Neutrophil Count 3.8 X10^3/uL (2.0-7.7); Basophil# 0.09 X10^3/uL; Basophil% 1.1 % (0-1); Eosinophil# 0.26 X10^3/uL; Eosinophils% 3.3 % (0-5); Hematocrit 45.1 % (37-47); Hemoglobin 14.6 g/dL (12.0-15.0); Lymphocyte # 3.27 X10^3/ul (0.83-4.51); Lymphocyte % 41.1 % (19-41); Mean Corp Hgb Conc 32.4 g/dL (32-36); Mean Corpuscular Hgb 29.9 pg (27.0-32.0); Mean Corpuscular Volume 92.4 fL (81-99); Mean Platelet Vol. 10.3 fl (6.2-12.0); Monocyte# 0.56 X10^3/uL; NRBC Flagged by Analyzer 0 % (0-5); Neutrophil # 3.75 X10^3/uL (2.7-7.7); Neutrophil % 47.2 % (47-70); Platelet Count 292 K/mm3 (150-450); RBC Distribution Width CV 13.2 % (11.6-14.6); RBC Distribution Width SD 45.3 fl (35.1-43.9); Red Blood Count 4.88 M/mm3 (4.2-5.4)
[2024-03-14 09:59] LABS: Internal QC Validated? YES +Cl - CLEAR BKGD; International Normalized Ratio 1.1; Pregnancy, Serum, hCG Quali. NEGATIVE Negative; Prothrombin Time (Protime)PT. 13.8 SECONDS (11.7-14.9)
[2024-03-14 10:00] LABS: Partial Thromboplast Time 27.3 Seconds (24.1-36.2)
[2024-03-14 10:03] LABS: Anion Gap 2 (5-15); BUN 9 mg/dL (7-18); BUN/Creat Ratio 15.3 RATIO (10-20); Calcium,Total 10.8 mg/dL (8.5-10.1); Chloride 112 mmol/L (98-107); Creatinine, Serum 0.59 mg/dL (0.55-1.02); EST Glomerular Filtration Rate 122 mL/min (>60); Est Glom Filt Rate - Afr Amer 148 mL/min (>60); Estimated Creatinine Clearance 146.01 ml/min; Glucose 105 mg/dL (74-106); Potassium 4.1 mmol/L (3.5-5.1); Sodium Level 139 mmol/L (136-145)
[2024-03-14 10:39] VITALS: BP 140/68; PULSE 89; RESP 16; O2SAT 99
--- NOTE | 2024-03-14 10:54 | EDS_ITS ---
HPI HPI - Female History of Present Illness Chief Complaint: Vag Bleeding Informant: patient Narrative Narrative: Patient present secondary to vaginal bleeding. She states she had her menstrual cycle last week and it started on Saturday, the time at which she was due. She only bled 2 days however. Last evening she started bleeding heavier than normal and at a time that was not normal for her. Patient denies any abdominal pain or cramping. She also complains of some bilateral lower extremity swelling in her feet at night. She does note that it seems to be improved during the day when her feet have been elevated all night. PFSH PFS Medical History delivery delivered Home Medications ?Medication ?Instructions ?Recorded ?Last Taken ?Type prenat.vits,jessica,[id number] 1 tab PO DAILY 03/22/21 08/09/21 History Allergy/AdvReac Type Severity Reaction Status Date / Time No Known Allergies Allergy Verified 03/14/24 08:41 Family History Father Diabetes Surgical History Status post bilateral salpingectomy delivery delivered Social History adopted: No household members: spouse and children number of children: 1 current occupational status: unemployed current occupation: [employer] pets and animals: Yes pets and animals: dog(s) Smoking Status: Never smoker alcohol intake: never substance use type: does not use caffeine: Yes what type of physical activity do you participate in: walking seatbelt use: always do you feel safe at home: Yes additional social history: - Hauls livestock Patient is currently unemployed [facility] ED Constitutional Constitutional ED: Denies chills or fever(s) Eyes Eyes: Denies discharge from eye(s) ENT ENT ED: Denies discharge from eye(s), rhinorrhea or sore throat Cardiovascular Cardiovascular: Denies chest pain Respiratory/Chest Respiratory/Chest: Denies cough or dyspnea Gastrointestinal Gastrointestinal: Denies abdominal pain, nausea or vomiting Genitourinary Genitourinary ED: Denies difficulty urinating or dysuria Musculoskeletal Musculoskeletal: Reports other Details: Lower extremity edema ; Denies back pain or extremity pain Integumentary Denies Abrasions or rash Neurologic Neurologic: Denies headache(s) or weakness Psychiatric Psychiatric: Denies anxiety or depression Allergic/Immunologic Allergic/Immunologic ED: Denies lip swelling or urticaria EXAM Physical Exam Const Vital Signs: 03/14/24 08:39 03/14/24 08:39 03/14/24 10:39 Temperature 97.2 F L Temperature Source Temporal Pulse Rate 77 72 89 Respiratory Rate 18 18 16 Blood Pressure 148/74 H 148/74 H 140/68 H Blood Pressure Mean 98 98 92 Pulse Ox 97 98 99 Oxygen Delivery Method Room Air Room Air Positive well nourished and well developed General Appearance ED: well developed HEENT Reports moist mucous membranes Eyes EOMs intact bilaterally Chest Wall inspection of chest normal and palpation of chest normal Resp normal respiratory effort and clear to auscultation bilaterally Cardio regular rate and regular rhythm GI soft to palpation and non-tender Extremity Extremity Narrative: Strong distal pulses to the bilateral lower extremities. No significant edema. No erythema or skin changes. Neuro oriented x3 and no sensory deficits noted Motor Exam: strength 5/5 throughout Psych mental status grossly normal Skin no rashes or lesions noted MDM MDM MDM Narrative Medical decision making narrative: IV line established. Labwork obtained to evaluate for leukocytosis, anemia, and electrolyte derangement. Pelvic ultrasound obtained to evaluate uterine lining thickness. History & Record Review Discussion w/independent historian: Patient Lab Data Attestation: I reviewed the patient's lab results. Labs: Laboratory Results - last 24 hr 03/14/24 09:45 WBC 8.0 RBC 4.88 Hgb 14.6 Hct 45.1 MCV 92.4 MCH 29.9 MCHC 32.4 RDW Std Deviation 45.3 H RDW Coeff of Onofre 13.2 Plt Count 292 MPV 10.3 Immature Gran % (Auto) 0.300 Neut % (Auto) 47.2 Lymph % (Auto) 41.1 H [place] % (Auto) 7.0 Eos % (Auto) 3.3 Baso % (Auto) 1.1 H Absolute Neuts (auto) 3.8 Absolute Lymphs (auto) 3.27 Nucleated RBC % 0 PT 13.8 INR 1.1 APTT 27.3 Sodium 139 Potassium 4.1 Chloride 112 H Carbon Dioxide 25.0 Anion Gap 2 L BUN 9 Creatinine 0.59 Estim Creat Clear Calc 146.01 Est GFR (MDRD) Af Amer 148 Est GFR (MDRD) Non-Af 122 BUN/Creatinine Ratio 15.3 Glucose 105 Calcium 10.8 H Serum , Qual NEGATIVE Radiography Diagnostic Testing: Clinical Impression(s) from Imaging Studies Transvaginal US 03/14/24 09:12 IMPRESSION: 1. Nonvisualization of both ovaries. 2. Otherwise unremarkable examination. Electronically Signed: Fareed Broussard MD at 11:11 EDT , Treatment and Re-Evaluation Narrative: CBC was normal white count 8.0 with a hemoglobin of 14.6. Differential unremarkable. Coags are normal. Chemistry studies unremarkable. test negative. Pelvic ultrasound reveals nonvisualization of the ovaries. Normal endometrial thickness. No other acute abnormalities. Results discussed with the patient. Because she did not have the normal amount of bleeding with her last cycle, I explained to her that the lining in her uterus built up enough that she is shedding that and having an extra period. This does not require any significant follow-up. If she develops pain she is to be evaluated. Patient voices understanding and agreement. Discharge Plan Triage Chief Complaint: Vag Bleeding ED Provider: Mariana Domínguez Dx/Rx/DC Orders Clinical Impression: Menorrhagia Instructions: ED Heavy Menstrual Bleeding Prescriptions: No Action prenat.vits,jessica,[id number] Tablet 1 tab PO DAILY Primary Care Provider: Zack Cosme Referrals: Zack Cosme DO [Primary Care Provider] - As Needed Katerina Gil MD [Med Staff - Active Staff] - As Needed Print Language: [place] Disposition Disposition: Home, Self Care
[2024-03-14 12:02] VITALS: BP 138/62; PULSE 72; RESP 14; TEMP 36.6; O2SAT 99
== END 2024-03-14 12:04 | disposition home or self-care (01) ==
PROVIDERS: Emergency Provider Emergency Medicine; PCP Family Medicine; Visit Provider Emergency Medicine
DX: N93.9 Abnormal uterine and vaginal bleeding, unspecified (principal); N92.0 Excessive and frequent menstruation with regular cycle
CPT/HCPCS: 76830; 80048; 84703; 85025; 85610; 85730; 99282; A4216